=== PATIENT | male | born 1990 | race Caucasian/White ===

== ENCOUNTER 2017-08-25 22:11 | Inpatient (IN) | payer OTHER ==
[~2017-08-25] VITALS: Ht 175.3 cm; Wt 111.0 kg
[2017-08-25 22:15] VITALS: BP 136/102; PULSE 117; RESP 16; TEMP 98.7; O2SAT 98
[2017-08-25] MEDS ORDERED: SODIUM CHLOR 0.9% 1000 ML INJ 1,000 ML IV SCH (22:42)
[2017-08-25] MEDS ORDERED: PANTOPRAZOLE SODIUM 40 MG VIAL IVP ONE (22:45)
[2017-08-25] MEDS ORDERED: ONDANSETRON HCL 4 MG/2 ML VIAL IVP ONE (22:45)
[2017-08-25] MEDS ORDERED: SODIUM CHLORIDE 0.9% FLUSH 10 ML FLUSH IVF PRN (22:45)
[2017-08-25 23:11] VITALS: O2SAT 100
[2017-08-25] MEDS ORDERED: LORazepam 2 MG/ML VIAL IV PUSH ONE (23:15)
[2017-08-25 23:37] LABS: AUTOMATED NEUTROPHIL # 6.7 TH/MM3 (1.8-7.7); BASOPHIL # 0.1 TH/MM3 (0-0.2); BASOPHIL % 0.9 % (0.0-2.0); HEMATOCRIT 42.9 % (39.0-51.0); LYMPH % 28.2 % (9.0-44.0); LYMPHOCYTE # 2.9 TH/MM3 (1.0-4.8); MEAN CELL VOLUME 92.6 FL (80.0-100.0); MEAN CORPUSCULAR HEMOGLOBIN 32.4 PG (27.0-34.0); MEAN PLATELET VOLUME 8.6 FL (7.0-11.0); MONO % 6.4 % (0.0-8.0); MONOCYTE # 0.7 TH/MM3 (0-0.9); NEUT % 64.5 % (16.0-70.0); PLATELET COUNT 335 TH/MM3 (150-450); RED BLOOD COUNT 4.63 MIL/MM3 (4.50-5.90); RED CELL DISTRIBUTION WIDTH 14.4 % (11.6-17.2); WHITE BLOOD COUNT 10.4 TH/MM3 (4.0-11.0)
[2017-08-25] MEDS ORDERED: SODIUM CHLOR 0.9% 1000 ML INJ 1,000 ML IV ONE (23:45)
[2017-08-25 23:50] LABS: INTERNATIONAL NORMALIZED RATIO 1.4 RATIO; PROTHROMBIN TIME - PATIENT 14.2 SEC (9.8-11.6)
[2017-08-25 23:56] LABS: ALBUMIN 3.3 GM/DL (3.4-5.0); ALKALINE PHOSPHATASE 440 U/L (45-117); ALT (GPT) 59 U/L (12-78); AST (GOT) 146 U/L (15-37); BICARBONATE 26.1 MEQ/L (21.0-32.0); BLOOD UREA NITROGEN 2 MG/DL (7-18); CALCIUM 9.9 MG/DL (8.5-10.1); CHLORIDE 94 MEQ/L (98-107); CREATININE 0.83 MG/DL (0.60-1.30); GLOMERULAR FILTRATION RATE 111 ML/MIN (>89); GLUCOSE,RANDOM 123 MG/DL (74-106); SODIUM (NA) 134 MEQ/L (136-145); TOTAL BILIRUBIN ADULT 1.5 MG/DL (0.2-1.0); TOTAL PROTEIN 8.4 GM/DL (6.4-8.2)
[2017-08-26] VITALS (10 sets, daily range): BP systolic 142–161; BP diastolic 79–99; PULSE 94–120; RESP 16–18; TEMP 97.8–98.8; O2SAT 96–100
[2017-08-26 00:10] LABS: BILIRUBIN, URINE NEG (NEG); BLOOD, URINE NEG (NEG); GLUCOSE,URINE NEG (NEG); KETONE, URINE NEG (NEG); MUCUS URINE FEW /lpf (OCC); NITRITE,URINE NEG (NEG); URINE COLOR YELLOW (YELLW/STRAW); URINE LEUKOCYTE ESTERASE NEG (NEG)
[2017-08-26] MEDS ORDERED: SUCRALFATE 1 GM/10 ML CUP PO ONE (00:15)
[2017-08-26] MEDS ORDERED: ALUMINUM/MAGNESIUM/SIMETH 30 ML CUP PO ONE (00:15)
[2017-08-26 00:17] LABS: MAGNESIUM 1.4 MG/DL (1.5-2.5)
[2017-08-26] MEDS ORDERED: IOHEXOL 350 MG/ML 10 ML VIAL (for RAD DIAG) IVCONTRAST ONE (00:24)
[2017-08-26] MEDS ORDERED: MAGNESIUM SULFATE 1 GM PREMIX 100 ML IV ONE (00:45)
[2017-08-26] MEDS ORDERED: POTASSIUM CHLORIDE 20 MEQ CONTROLLED RELEASE TAB PO ONE (00:45)
--- NOTE | 2017-08-26 00:46 | RADRPT ---
EXAM DATE/TIME: 08/26/2017 00:24 [facility] COMPARISON: No previous studies available for comparison. INDICATIONS : Abdomen pain. IV CONTRAST: 75 cc Omnipaque 350 (iohexol) IV ORAL CONTRAST: No oral contrast ingested. RADIATION DOSE: 15.71 CTDIvol (mGy) MEDICAL HISTORY : Cardiovascular disease. Hypertension. Renal calculi. SURGICAL HISTORY : None. ENCOUNTER: Initial ACUITY: 1 day PAIN SCALE: 5/10 LOCATION: Bilateral abdomen TECHNIQUE: Volumetric scanning of the abdomen and pelvis was performed. Using automated exposure control and ad justment of the mA and/or kV according to patient size, radiation dose was kept as low as reasonably achievable to obtain optimal diagnostic quality images. DICOM format image data is available electro nically for review and comparison. FINDINGS: LOWER LUNGS: The visualized lower lungs are clear. LIVER: Failure measures 20.9 cm in length and demonstrates severe diffuse steatosis. There is no dilation o f the biliary tree. There are small calcified stones in the gallbladder. SPLEEN: Normal size without lesion. PANCREAS: The pancreas has an abnormal appearance with ovoid area of low density in the body and tail measuring approximately 6.1 x 1.7 cm. There is a second low-density area in the pancreatic head. Minimal indur ation of the peripancreatic fat is present. There is no pancreatic calcification. KIDNEYS: Normal in size and shape. There is no mass or hydronephrosis. There are 2 nonobstructing right renal stones measuring 2 mm each and there are 2 nonobstructing left renal stones measuring 2 mm each. ADRENAL GLANDS: Within normal limits. VASCULAR: There is no aortic aneurysm. BOWEL/MESENTERY: The stomach, small bowel, and colon demonstrate no acute abnormality. There is no free intraperitone al air or fluid. ABDOMINAL WALL: Within normal limits. RETROPERITONEUM: There is no lymphadenopathy. BLADDER: No wall thickening or mass. REPRODUCTIVE: Within normal limits. INGUINAL: There is no lymphadenopathy or hernia. MUSCULOSKELETAL: Within normal limits for patient age. CONCLUSION: 1. Abnormal pancreas with a tubular area of low density in the body and tail which could represent an abnormally dilated duct or could represent necrosis related to pancreatitis. There is some surroundi ng minimal inflammatory changes. An additional low density areas present in the pancreatic head. Sugg est correlating with the appropriate laboratory values and suggest correlating with any prior imaging studies to assess for change. Followup pancreas protocol CT is suggested to assess for change and ex clude an underlying solid mass. 2. Hepatomegaly with severe steatosis. 3. Other findings include bilateral nonobstructing renal stones and cholelithiasis. Terrell Franklin MD on August 26, 2017 at 0:39 Board Certified Radiologist. This report was verified electronically.
[2017-08-26] MEDS ORDERED: RESP: ALBUTEROL 2.5 MG/IPRATROPIUM 0.5 MG NEB (SCH) NEB ONE (01:00)
--- NOTE | 2017-08-26 01:40 | RADRPT ---
EXAM DATE/TIME: 08/26/2017 01:13 [facility] COMPARISON: No previous studies available for comparison. INDICATIONS : Chest pain, short of breath. MEDICAL HISTORY : None. SURGICAL HISTORY : None. ENCOUNTER: Initial ACUITY: 1 day PAIN SCORE: 0/10 LOCATION: Bilateral chest FINDINGS: Portable AP view of the chest demonstrates a normal-sized cardiac silhouette. No effusion, consolidat ion, or pneumothorax is visualized. The bones and soft tissues demonstrate no acute abnormality. CONCLUSION: No acute cardiopulmonary abnormality is identified. Terrell Franklin MD on August 26, 2017 at 1:38 Board Certified Radiologist. This report was verified electronically.
[2017-08-26] MEDS ORDERED: ONDANSETRON HCL 4 MG/2 ML VIAL IV PUSH ONE (03:15)
--- NOTE | 2017-08-26 04:09 | PD ---
HPI . GI complaint Chief Complaint: GI Complaint Time Seen by Provider: 22:37 Travel History International Travel<30 days: No Contact w/Intl Traveler<30days: No Traveled to known affect area: No History of Present Illness HPI 26-year-old male with a history of chronic severe alcoholism, patient states he drinks at least a pint of vodka a day since the age of 16, presents with having worsening of his chronic epigastric pain, and abdominal bloating. 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 Patient notes recent vomiting syndrome, with inability to take in his normal amount of alcohol and began having acute withdrawal symptoms, which she self medicated by binge drinking over the past several days. Patient notes persistent tremulous hands consistent with slight alcohol withdrawal. [facility] Past Medical History Narrative Medical Past medical history reviewed Cardiovascular Problems: Yes (HTN, PALPITATIONS) Cirrhosis: Yes Hepatitis: Yes (C) Kidney Stones: Yes Past Surgical History Abdominal Surgery: Yes (HERNIA REPAIR A BABY) Social History Alcohol Use: Yes (BINGE [employer]INKS OCC.) Tobacco Use: No Substance Use: No Allergies-Medications (Allergen,Severity, Reaction): Coded Allergies: No Known Allergies (Unverified , 08/25/17) Narrative Medication Allergies and medications reviewed Review of Systems Except as stated in HPI: all other systems reviewed are Neg General / Constitutional: No: Fever Eyes: No: Visual changes HENT: No: Headaches Cardiovascular: No: Chest Pain or Discomfort Respiratory: No: Shortness of Breath Gastrointestinal: Positive: Nausea, Vomiting, Abdominal Pain Genitourinary: No: Dysuria Musculoskeletal: No: Pain Skin: No Rash Neurologic: Positive: Tremor, No: Weakness, Ataxia, Change in Mentation, Slurred Speech Psychiatric: Positive: Anxiety, No: Depression Endocrine: No: Polydipsia Hematologic/Lymphatic: No: Easy Bruising Physical Exam Narrative GENERAL: Awake and alert, ill-appearing, tremulous. Slight tachycardia, afebrile SKIN: Warm and dry. No piloerection, no rashes or lesions HEAD: Atraumatic. Normocephalic. EYES: Pupils equal and round. No scleral icterus. No injection or drainage. ENT: No nasal bleeding or discharge. Mucous membranes pink and moist. NECK: Trachea midline. No JVD. Nontender full range of motion CARDIOVASCULAR: Regular rate and rhythm. S1-S2 no murmurs or gallops RESPIRATORY: No accessory muscle use. Clear to auscultation. Breath sounds equal bilaterally. GASTROINTESTINAL: Abdomen soft, tender epigastrium,, mildly distended.. Hepatic and splenic margins not palpable. MUSCULOSKELETAL: Extremities without clubbing, cyanosis, or edema. No obvious deformities. Cachectic appearing limbs NEUROLOGICAL: Awake and alert. No obvious cranial nerve deficits. Motor grossly within normal limits. Five out of 5 muscle strength in the arms and legs. Normal speech. PSYCHIATRIC: Appropriate mood and affect; insight and judgment normal. Data Data Last Documented VS Vital Signs Date Time Temp Pulse Resp B/P (MAP) Pulse Ox O2 Delivery O2 Flow Rate FiO2 08/26/17 03:43 117 16 143/91 (108) 100 Nasal Cannula 2.00 08/25/17 22:15 98.7 Orders Orders Complete Blood Count With Diff (08/25/17 22:42) Comprehensive Metabolic Panel (08/25/17 22:42) Lipase (08/25/17 22:42) Ammonia (08/25/17 22:42) Prothrombin Time / Inr (Pt) (08/25/17 22:42) Act Partial Throm Time (Ptt) (08/25/17 22:42) Alcohol (Ethanol) (08/25/17 22:42) Urinalysis - C+S If Indicated (08/25/17 22:42) Type And Screen (08/25/17 22:42) Ecg Monitoring (08/25/17 22:42) Iv Access Insert/Monitor (08/25/17 22:42) Oximetry (08/25/17 22:42) Ondansetron Inj (Zofran Inj) (08/25/17 22:45) Pantoprazole Inj (Protonix Inj) (08/25/17 22:45) Sodium Chlor 0.9% 1000 Ml Inj (Ns 1000 M (08/25/17 22:42) Sodium Chloride 0.9% Flush (Ns Flush) (08/25/17 22:45) Lorazepam Inj (Ativan Inj) (08/25/17 23:15) Sodium Chlor 0.9% 1000 Ml Inj (Ns 1000 M (08/25/17 23:45) Morphine Inj (Morphine Inj) (08/26/17 00:00) Al-Mag Hy-Si 40-40-4 Mg/Ml Liq (Mag-Al P (08/26/17 00:15) Sucralfate Liq (Carafate Liq) (08/26/17 00:15) Magnesium (Mg) (08/25/17 23:00) Ct Abd/Pel W Iv Contrast(Rout) (08/26/17 ) Iohexol 350 Inj (Omnipaque 350 Inj) (08/26/17 00:24) Magnesium Sulfate 1 Gm Premix (Magnesium (08/26/17 00:45) Potassium Chloride (Kcl) (08/26/17 00:45) Arterial Blood Gas (Abg) (08/26/17 ) Lactic Acid (08/26/17 00:54) Albuterol-Ipratropium Neb (Duoneb Neb) (08/26/17 01:00) Chest, Single Ap (08/26/17 ) Red Blood Cells (Rbc) (08/25/17 23:00) Ondansetron Inj (Zofran Inj) (08/26/17 03:15) Admit Order (Ed Use Only) (08/26/17 03:59) Labs Laboratory Tests Test 08/25/17 23:00 08/25/17 23:20 08/25/17 23:30 08/26/17 01:15 White Blood Count 10.4 TH/MM3 Red Blood Count 4.63 MIL/MM3 Hemoglobin 15.0 GM/DL Hematocrit 42.9 % Mean Corpuscular Volume 92.6 FL Mean Corpuscular Hemoglobin 32.4 PG Mean Corpuscular Hemoglobin Concent 35.0 % Red Cell Distribution Width 14.4 % Platelet Count 335 TH/MM3 Mean Platelet Volume 8.6 FL Neutrophils (%) (Auto) 64.5 % Lymphocytes (%) (Auto) 28.2 % Monocytes (%) (Auto) 6.4 % Eosinophils (%) (Auto) 0.0 % Basophils (%) (Auto) 0.9 % Neutrophils # (Auto) 6.7 TH/MM3 Lymphocytes # (Auto) 2.9 TH/MM3 Monocytes # (Auto) 0.7 TH/MM3 Eosinophils # (Auto) 0.0 TH/MM3 Basophils # (Auto) 0.1 TH/MM3 CBC Comment DIFF FINAL Differential Comment Prothrombin Time 14.2 SEC Prothromb Time International Ratio 1.4 RATIO Activated Partial Thromboplast Time 27.0 SEC Blood Urea Nitrogen 2 MG/DL Creatinine 0.83 MG/DL Random Glucose 123 MG/DL Total Protein 8.4 GM/DL Albumin 3.3 GM/DL Calcium Level 9.9 MG/DL Magnesium Level 1.4 MG/DL Alkaline Phosphatase 440 U/L Aspartate Amino Transf (AST/SGOT) 146 U/L Alanine Aminotransferase (ALT/SGPT) 59 U/L Total Bilirubin 1.5 MG/DL Sodium Level 134 MEQ/L Potassium Level 2.7 MEQ/L Chloride Level 94 MEQ/L Carbon Dioxide Level 26.1 MEQ/L Anion Gap 14 MEQ/L Estimat Glomerular Filtration Rate 111 ML/MIN Lipase 40 U/L Ethyl Alcohol Level 169 MG/DL Ammonia 17 MCMOL/L Urine Color YELLOW Urine Turbidity CLEAR Urine pH 7.0 Urine Specific [place] 1.005 Urine Protein TRACE mg/dL Urine Glucose (UA) NEG mg/dL Urine Ketones NEG mg/dL Urine Occult Blood NEG Urine Nitrite NEG Urine Bilirubin NEG Urine Urobilinogen LESS THAN 2.0 MG/DL Urine Leukocyte Esterase NEG Urine RBC LESS THAN 1 /hpf Urine WBC 1 /hpf Urine Mucus FEW /lpf Microscopic Urinalysis Comment CULT NOT INDICATED Blood Gas Puncture Site RT RADIAL Blood Gas Patient Temperature 98.6 Blood Gas HCO3 23 mmol/L Blood Gas Base Excess -0.5 mmol/L Blood Gas Oxygen Saturation 97 % Arterial Blood pH 7.45 Arterial Blood Partial Pressure CO2 34 mmHg Arterial Blood Partial Pressure O2 129 mmHG Arterial Blood Oxygen Content 16.5 Vol % Arterial Blood Carboxyhemoglobin 1.3 % Arterial Blood Methemoglobin 0.3 % Blood Gas Hemoglobin 11.9 G/DL Oxygen Delivery Device NASAL CANNULA Blood Gas Liter Flow 2 L/M Test 08/26/17 01:25 Lactic Acid Level 2.7 mmol/L [facility] Medical Decision Making Medical Screen Exam Complete: Yes Emergency Medical Condition: Yes Medical Record Reviewed: Yes Differential Diagnosis Acute pancreatitis, chronic alcoholism, alcoholic gastritis, acute withdrawal from alcohol Narrative Course Patient laboratory examinations reviewed, lipase normal, however the patient has probable chronic pancreatitis with decreased ability to create enzymes. Hypokalemia/hypomagnesemia treated CT abdomen and pelvis notable for severely atrophic and potentially liquefied pancreas. Case discussed with Dr. Davis Hospital service, admitted for alcohol draw and acute on chronic pancreatitis Patient has significant improvement with his alcohol withdrawal symptoms, no longer tremulous, no longer tachycardic, abdominal pain significantly improved as well. Diagnosis Primary Impression: Acute on chronic pancreatitis Additional Impressions: Chronic pancreatitis due to acute alcohol intoxication Alcohol withdrawal Qualified Codes: F10.230 - Alcohol dependence with withdrawal, uncomplicated Admitting Information Admitting Physician Requests: Admit Ankur Castillo MD Aug 26, 2017 04:09
[2017-08-26] MEDS: SODIUM CHLOR 0.9% 1000 ML INJ 1,000 ML IV SCH ×4 (04:10→21:09)
[2017-08-26] MEDS ORDERED: SODIUM CHLORIDE 0.9% FLUSH 10 ML FLUSH IV FLUSH PRN (04:15)
[2017-08-26] MEDS ORDERED: ACETAMINOPHEN 325 MG TAB PO PRN (04:15)
--- NOTE | 2017-08-26 04:45 | HHI.HP ---
[facility] No Primary Care Physician Admission Diagnosis Alcohol Withdrawal, Acute on Chronic Pancreatitis Diagnoses: Travel History International Travel<30 Days: No Contact w/Intl Traveler <30 Da: No Traveled to Known Affected Are: No History of Present Illness 26-year-old male with a past medical history significant for hepatitis C and alcohol abuse presents to the emergency department for evaluation of epigastric abdominal pain. The patient reports that the pain radiates to his back. He endorses several episodes of bloody emesis that started yesterday. He also complains of "the shakes." The patient reports that he drinks approximately 1- 3 pints of vodka a day for days to weeks at a time. Review of Systems Except as stated in HPI: all other systems reviewed are Neg Denies fever or chills Denies blurry vision, otorrhea, rhinorrhea Denies sore throat and cough No chest pain, palpitations No shortness of breath or wheezing No abdominal pain Denies constipation/diarrhea/nausea/vomiting Denies muscle pain Denies focal weakness No rashes Past Family Social History Past Medical History Alcohol abuse Hepatitis C Past Surgical History Hernia repair as an infant Reported Medications None Allergies: Coded Allergies: No Known Allergies (Unverified , 08/25/17) Family History Father with diabetes mellitus Social History Positive marijuana. Denies tobacco. Alcohol as documented in history of present illness. Physical Exam Vital Signs Vital Signs Date Time Temp Pulse Resp B/P (MAP) Pulse Ox O2 Delivery O2 Flow Rate FiO2 08/26/17 03:43 117 16 143/91 (108) 100 Nasal Cannula 2.00 08/26/17 01:08 99 Nasal Cannula 2.00 08/25/17 23:11 100 Room Air 08/25/17 22:15 98.7 117 16 136/102 (113) 98 Physical Exam GENERAL: male lying in bed in moderate distress SKIN: No rashes, ecchymoses or lesions. Cool and dry. HEAD: Atraumatic. Normocephalic. No temporal or scalp tenderness. EYES: Pupils equal round and reactive. Extraocular motions intact. No scleral icterus. No injection or drainage. ENT: Nose without bleeding, purulent drainage or septal hematoma. Throat without erythema, tonsillar hypertrophy or exudate. Uvula midline. Airway patent. NECK: Trachea midline. No JVD or lymphadenopathy. Supple, nontender, no meningeal signs. CARDIOVASCULAR: Regular rate and rhythm without murmurs, gallops, or rubs. RESPIRATORY: Clear to auscultation. Breath sounds equal bilaterally. No wheezes , rales, or rhonchi. GASTROINTESTINAL: Abdomen soft, exquisitely tender to palpation throughout, worse in the epigastric region, nondistended. No hepato-splenomegaly, or palpable masses. MUSCULOSKELETAL: Extremities without clubbing, cyanosis, or edema. No joint tenderness, effusion, or edema noted. No calf tenderness. NEUROLOGICAL: Awake and alert. Cranial nerves II through XII intact. Motor and sensory grossly within normal limits. Normal speech. Laboratory Laboratory Tests Test 08/25/17 23:00 08/25/17 23:20 08/25/17 23:30 08/26/17 01:15 White Blood Count 10.4 Red Blood Count 4.63 Hemoglobin 15.0 Hematocrit 42.9 Mean Corpuscular Volume 92.6 Mean Corpuscular Hemoglobin 32.4 Mean Corpuscular Hemoglobin Concent 35.0 Red Cell Distribution Width 14.4 Platelet Count 335 Mean Platelet Volume 8.6 Neutrophils (%) (Auto) 64.5 Lymphocytes (%) (Auto) 28.2 Monocytes (%) (Auto) 6.4 Eosinophils (%) (Auto) 0.0 Basophils (%) (Auto) 0.9 Neutrophils # (Auto) 6.7 Lymphocytes # (Auto) 2.9 Monocytes # (Auto) 0.7 Eosinophils # (Auto) 0.0 Basophils # (Auto) 0.1 CBC Comment DIFF FINAL Differential Comment Prothrombin Time 14.2 Prothromb Time International Ratio 1.4 Activated Partial Thromboplast Time 27.0 Blood Urea Nitrogen 2 Creatinine 0.83 Random Glucose 123 Total Protein 8.4 Albumin 3.3 Calcium Level 9.9 Magnesium Level 1.4 Alkaline Phosphatase 440 Aspartate Amino Transf (AST/SGOT) 146 Alanine Aminotransferase (ALT/SGPT) 59 Total Bilirubin 1.5 Sodium Level 134 Potassium Level 2.7 Chloride Level 94 Carbon Dioxide Level 26.1 Anion Gap 14 Estimat Glomerular Filtration Rate 111 Lipase 40 Ethyl Alcohol Level 169 Ammonia 17 Urine Color YELLOW Urine Turbidity CLEAR Urine pH 7.0 Urine Specific [place] 1.005 Urine Protein TRACE Urine Glucose (UA) NEG Urine Ketones NEG Urine Occult Blood NEG Urine Nitrite NEG Urine Bilirubin NEG Urine Urobilinogen LESS THAN 2.0 Urine Leukocyte Esterase NEG Urine RBC LESS THAN 1 Urine WBC 1 Urine Mucus FEW Microscopic Urinalysis Comment CULT NOT INDICATED Blood Gas Puncture Site RT RADIAL Blood Gas Patient Temperature 98.6 Blood Gas HCO3 23 Blood Gas Base Excess -0.5 Blood Gas Oxygen Saturation 97 Arterial Blood pH 7.45 Arterial Blood Partial Pressure CO2 34 Arterial Blood Partial Pressure O2 129 Arterial Blood Oxygen Content 16.5 Arterial Blood Carboxyhemoglobin 1.3 Arterial Blood Methemoglobin 0.3 Blood Gas Hemoglobin 11.9 Oxygen Delivery Device NASAL CANNULA Blood Gas Liter Flow 2 Test 08/26/17 01:25 Lactic Acid Level 2.7 Result Diagram: 08/25/17229908/25/172299 Chaunceyrini VTE Risk Assessment [place] VTE Risk Assessment: No/Low Risk (score <= 1) Caprini Risk Assessment Model Point Value = 1 Point Value = 2 Point Value = 3 Point Value = 5 Age 41-60 Minor surgery BMI > 25 kg/m2 Swollen legs Varicose veins or History of unexplained or recurrent spontaneous Oral contraceptives or hormone replacement Sepsis (< 1 month) Serious lung disease, including pneumonia (< 1 month) Abnormal pulmonary function Acute myocardial infarction Congestive heart failure (< 1 month) History of inflammatory bowel disease Medical patient at bed rest Age 61-74 Arthroscopic surgery Major open surgery (> 45 min) Laparoscopic surgery (> 45 min) Malignancy Confined to bed (> 72 hours) Immobilizing plaster cast Central venous access Age >= 75 History of VTE Family history of VTE Factor V Leiden Prothrombin [id number] Lupus anticoagulant Anticardiolipin antibodies Elevated serum homocysteine Heparin-induced thrombocytopenia Other congenital or acquired thrombophilia Stroke (< 1 month) Elective arthroplasty Hip, pelvis, or leg fracture Acute spinal cord injury (< 1 month) Prophylaxis Regimen Total Risk Factor Score Risk Level Prophylaxis Regimen 0-1 Low Early ambulation 2 Moderate Order ONE of the following: *Sequential Compression Device (SCD) *Heparin 5000 units SQ BID 3-4 Higher Order ONE of the following medications: *Heparin 5000 units SQ TID *Enoxaparin/Lovenox 40 mg SQ daily (WT < 150 kg, CrCl > 30 mL/min) *Enoxaparin/Lovenox 30 mg SQ daily (WT < 150 kg, CrCl > 10-29 mL/min) *Enoxaparin/Lovenox 30 mg SQ BID (WT < 150 kg, CrCl > 30 mL/min) AND/OR *Sequential Compression Device (SCD) 5 or more Highest Order ONE of the following medications: *Heparin 5000 units SQ TID (Preferred with Epidurals) *Enoxaparin/Lovenox 40 mg SQ daily (WT < 150 kg, CrCl > 30 mL/min) *Enoxaparin/Lovenox 30 mg SQ daily (WT < 150 kg, CrCl > 10-29 mL/min) *Enoxaparin/Lovenox 30 mg SQ BID (WT < 150 kg, CrCl > 30 mL/min) AND *Sequential Compression Device (SCD) Assessment and Plan Assessment and Plan Assessment/plan: 1. Alcoholic pancreatitis CT of the abdomen/pelvis significant for abnormal pancreas with possible necrosis and possible underlying solid mass Gastroenterology consulted, appreciate recommendations MRI pending for further characterization Nothing by mouth IV fluid hydration 2. Hypokalemia Status post by mouth and IV replacement Monitor BMP 3. Hepatitis C Patient will need outpatient follow-up once acute medical conditions resolved 4. Alcohol abuse CIWA protocol Cessation counseling provided Monitor for signs of acute withdrawal FEN NPO NS at 150 cc/hr Electrolytes: As above Ambulation Physician Certification 2 Midnight Certification Type: Admission for Inpatient Services Order for Inpatient Services The services are ordered in accordance with Medicare regulations or non- Medicare payer requirements, as applicable. In the case of services not specified as inpatient-only, they are appropriately provided as inpatient services in accordance with the 2-midnight benchmark. Estimated LOS (days): 2 2 days is the estimated time the patient will need to remain in the hospital, assuming treatment plan goals are met and no additional complications. Post-Hospital Plan: Not yet determined Rosalba Davis MD Aug 26, 2017 04:45
[2017-08-26] MEDS ORDERED: MORPHINE SULFATE 2 MG/ML INJ IV PUSH ONE ×2 (05:30)
[2017-08-26] MEDS ORDERED: LORazepam 2 MG/ML VIAL IV PUSH ONE (05:30)
[2017-08-26] MEDS: POTASSIUM CHLOR 10 MEQ PREMIX 100 ML IV SCH ×3 (05:33→18:39)
[2017-08-26] MEDS ORDERED: LORazepam 2 MG TAB PO PRN (06:30)
[2017-08-26] MEDS ORDERED: FLUMAZENIL 0.5 MG/5 ML VIAL IV PUSH PRN (06:30)
[2017-08-26] MEDS ORDERED: LORazepam 2 MG/ML VIAL IV PUSH PRN ×3 (06:30)
[2017-08-26] MEDS: SODIUM CHLORIDE 0.9% FLUSH 10 ML FLUSH IV FLUSH SCH ×2 (09:00→21:04)
[2017-08-26] MEDS: LORazepam 2 MG/ML VIAL IV PUSH PRN ×4 (09:33→21:08)
[2017-08-26] MEDS ORDERED: SODIUM CHLOR 0.9% 1000 ML INJ 1,000 ML IV ONE (09:45)
[2017-08-26] MEDS ORDERED: THIAMINE HCL 100 MG TAB PO ONE (10:00)
--- NOTE | 2017-08-26 11:59 | PD.CONS ---
HPI History of Present Illness This is a 26 year old male with hx ETOH abuse, hep c, shaan mcleod tear who presented with epigastric pain, loose stool, hematemesis. 4 days ago he began experiencing epigastric and RUQ pain that radiates to the back and is spasm like , . He had 3 episodes loose non-blood stool this am. Yesterday he had n/ v with some coffee ground emesis and copious carla blood in emesis. Today he is nauseous but has nto vomited. he was drinking 1-3 pints vodka daily and has been trying to quit. He quit abrubtly and has been having shaking an bloating, SOB, palpitations. He was scheduled to go to rehab when he began feeling sick 4 days ago. He had a similar episode of abd pain last year and was seen at [facility] and had EGD with Dr Schaffer 08/2016 found shaan mcleod tear, small nonbleeding ulcer, path benign. he was pos for hep c antibody at that time but does not recall being told this; he says he was told he had pancreatitis, " a blocked duct," and etoh hepatitis. CT scan 08/26/17 showed abnormal pancreas with tubular area low density coulb be abnormally dilated duct vs necrosis r/t pancreatitis, cholelithiasis, hepatomegaly. (Patty Rosales) PFSH Past Medical History Alcohol abuse Hepatitis C Past Surgical History Hernia repair as an (Patty Rosales) Coded Allergies: No Known Allergies (Unverified , 08/25/17) Family History Father with diabetes mellitus Social History Positive marijuana. Denies tobacco. Alcohol as documented in history of present illness. (Patty Rosales) Review of Systems Constitutional: COMPLAINS OF: Weight loss, Chills Endocrine: DENIES: Polydipsia Eyes: DENIES: Blurred vision Ears, nose, mouth, throat: DENIES: Hearing loss Respiratory: COMPLAINS OF: Shortness of breath, DENIES: Cough Cardiovascular: COMPLAINS OF: Palpitations, DENIES: Chest pain Gastrointestinal: COMPLAINS OF: Abdominal pain, Diarrhea, Nausea, Vomiting, Hematemesis, DENIES: Black stools, Bloody stools Genitourinary: DENIES: Hematuria Musculoskeletal: DENIES: Joint Swelling Integumentary: DENIES: Jaundice Hematologic/lymphatic: DENIES: Bruising Neurologic: DENIES: Abnormal gait Psychiatric: COMPLAINS OF: Anxiety (Patty Rosales) GI Exam Vitals I&O Vital Signs Date Time Temp Pulse Resp B/P (MAP) Pulse Ox O2 Delivery O2 Flow Rate FiO2 08/26/17 08:10 105 08/26/17 06:30 98.8 120 18 155/94 (114) 99 08/26/17 06:05 Nasal Cannula 2.00 08/26/17 05:57 111 16 143/79 (100) 100 Nasal Cannula 08/26/17 03:43 117 16 143/91 (108) 100 Nasal Cannula 2.00 08/26/17 01:08 99 Nasal Cannula 2.00 08/25/17 23:11 100 Room Air 08/25/17 22:15 98.7 117 16 136/102 (113) 98 Imaging Last Impressions Chest X-Ray 08/26/17 0000 Signed Impressions: Service Date/Time: Saturday, August 26, 2017 01:13 - CONCLUSION: No acute cardiopulmonary abnormality is identified. Terrell Franklin MD Abdomen/Pelvis CT 08/26/17 0000 Signed Impressions: Service Date/Time: Saturday, August 26, 2017 00:24 - CONCLUSION: 1. Abnormal pancreas with a tubular area of low density in the body and tail which could represent an abnormally dilated duct or could represent necrosis related to pancreatitis. There is some surrounding minimal inflammatory changes. An additional low density areas present in the pancreatic head. Suggest correlating with the appropriate laboratory values and suggest correlating with any prior imaging studies to assess for change. Followup pancreas protocol CT is suggested to assess for change and exclude an underlying solid mass. 2. Hepatomegaly with severe steatosis. 3. Other findings include bilateral nonobstructing renal stones and cholelithiasis. Terrell Franklin MD Laboratory Test 08/25/17 23:00 08/25/17 23:20 08/25/17 23:30 08/26/17 01:15 White Blood Count 10.4 TH/MM3 Red Blood Count 4.63 MIL/MM3 Hemoglobin 15.0 GM/DL Hematocrit 42.9 % Mean Corpuscular Volume 92.6 FL Mean Corpuscular Hemoglobin 32.4 PG Mean Corpuscular Hemoglobin Concent 35.0 % Red Cell Distribution Width 14.4 % Platelet Count 335 TH/MM3 Mean Platelet Volume 8.6 FL Neutrophils (%) (Auto) 64.5 % Lymphocytes (%) (Auto) 28.2 % Monocytes (%) (Auto) 6.4 % Eosinophils (%) (Auto) 0.0 % Basophils (%) (Auto) 0.9 % Neutrophils # (Auto) 6.7 TH/MM3 Lymphocytes # (Auto) 2.9 TH/MM3 Monocytes # (Auto) 0.7 TH/MM3 Eosinophils # (Auto) 0.0 TH/MM3 Basophils # (Auto) 0.1 TH/MM3 CBC Comment DIFF FINAL Differential Comment Prothrombin Time 14.2 SEC Prothromb Time International Ratio 1.4 RATIO Activated Partial Thromboplast Time 27.0 SEC Blood Urea Nitrogen 2 MG/DL Creatinine 0.83 MG/DL Random Glucose 123 MG/DL Total Protein 8.4 GM/DL Albumin 3.3 GM/DL Calcium Level 9.9 MG/DL Magnesium Level 1.4 MG/DL Alkaline Phosphatase 440 U/L Aspartate Amino Transf (AST/SGOT) 146 U/L Alanine Aminotransferase (ALT/SGPT) 59 U/L Total Bilirubin 1.5 MG/DL Sodium Level 134 MEQ/L Potassium Level 2.7 MEQ/L Chloride Level 94 MEQ/L Carbon Dioxide Level 26.1 MEQ/L Anion Gap 14 MEQ/L Estimat Glomerular Filtration Rate 111 ML/MIN Lipase 40 U/L Ethyl Alcohol Level 169 MG/DL Ammonia 17 MCMOL/L Urine Color YELLOW Urine Turbidity CLEAR Urine pH 7.0 Urine Specific [place] 1.005 Urine Protein TRACE mg/dL Urine Glucose (UA) NEG mg/dL Urine Ketones NEG mg/dL Urine Occult Blood NEG Urine Nitrite NEG Urine Bilirubin NEG Urine Urobilinogen LESS THAN 2.0 MG/DL Urine Leukocyte Esterase NEG Urine RBC LESS THAN 1 /hpf Urine WBC 1 /hpf Urine Mucus FEW /lpf Microscopic Urinalysis Comment CULT NOT INDICATED Blood Gas Puncture Site RT RADIAL Blood Gas Patient Temperature 98.6 Blood Gas HCO3 23 mmol/L Blood Gas Base Excess -0.5 mmol/L Blood Gas Oxygen Saturation 97 % Arterial Blood pH 7.45 Arterial Blood Partial Pressure CO2 34 mmHg Arterial Blood Partial Pressure O2 129 mmHG Arterial Blood Oxygen Content 16.5 Vol % Arterial Blood Carboxyhemoglobin 1.3 % Arterial Blood Methemoglobin 0.3 % Blood Gas Hemoglobin 11.9 G/DL Oxygen Delivery Device NASAL CANNULA Blood Gas Liter Flow 2 L/M Test 08/26/17 01:25 Lactic Acid Level 2.7 mmol/L Physical Examination HEENT: PERRL; normocephalic; atraumatic; +subtle icterus CHEST: CTA CARDIAC: RRR ABDOMEN: Soft,obese, TTP RUQ and epigastrium, bowel sounds are present in all four quadrants. EXTREMITIES: No clubbing, cyanosis, or edema. SKIN: Normal; no rash; no jaundice. PERINATAL EDUCATOR: No focal deficits; alert and oriented times three. (Patty Rosales) Assessment and Plan Plan ASSESSMENT - abnormal imaging, epigastric and RUQ pain - CT as above, dilated duct vs necrosis, cholelithiasis. Lipase WNL. cites previously being told he had a blocked duct and a stone passed, this was last year. - hematemesis - could be shaan mcleod tear, ulcer as both of these seen on EGD 08/2016. HH WNL - elevated LFTs - unclear etiology, abuses ETOH, could poss be obstruction, CT as above. hx hep c ab reactive, never followed up. lola gandara, says he had done at reputable establishment. denies IVDU. PLAN - EGD in am - ok for clear liquids from GI standpoint - NPO after midnight - obtain consent - hcv quant and genotype - await MRabd/pelvis - if MRI shows CBD obstruction will need ERCP - CMP in am - monitor labs - ETOH cessation - further recs as case unfolds pt seen by myself and Dr Hamilton and this note is written on her behalf (Patty Rosales) Patty Rosales Aug 26, 2017 11:59 Caren Hamilton MD Aug 27, 2017 14:10
[2017-08-26] MEDS ORDERED: GADODIAMIDE PF 287 MG/ML 20 ML VIAL (for RAD MRI) IVCONTRAST ONE (13:33)
[2017-08-26] MEDS: ONDANSETRON HCL 4 MG/2 ML VIAL IVP PRN ×2 (13:44→21:24)
--- NOTE | 2017-08-26 14:53 | RADRPT ---
EXAM DATE/TIME: 08/26/2017 12:57 [facility] COMPARISON: CT ABDOMEN & PELVIS W CONTRAST, August 26, 2017, 0:24. INDICATIONS : Pancreatic mass. Abdominal pain with abnormal CT. CONTRAST: 20 cc Omniscan (gadodiamide) IV MEDICAL HISTORY : Seizures. Hypertension. Cirrhosis. Hepatitis. SURGICAL HISTORY : Umbilical hernia repair. ENCOUNTER: Subsequent ACUITY: 2 day PAIN SCORE: 4/10 LOCATION: abdomen. TECHNIQUE: Multiplanar, multisequence magnetic resonance imaging of the abdomen was performed without and with i ntravenous contrast. FINDINGS: The liver is enlarged and demonstrates diffuse fatty infiltration. No focal hepatic mass is noted. Ch olelithiasis is noted. The spleen is mildly enlarged. There is diffuse enlargement of the pancreas wi th central tubular area of fluid attenuation which may represent a markedly dilated pancreatic duct o r necrosis. ERCP may be helpful for further evaluation of this patient. No definite focal mass is freeman ntified on this examination. Multiple calcified nonobstructing bilateral renal calculi are noted. The re is no hydronephrosis or solid renal mass. The normal aorta and inferior vena cava are unremarkable . The adrenal glands are normal bilaterally. Tiny right pleural effusion is noted. CONCLUSION: 1. Diffuse enlargement of pancreas with central tubular area of fluid attenuation which may represent a markedly dilated pancreatic duct or necrosis. ERCP may be helpful for further evaluation of this p atient. No definite focal mass is identified. 2. Enlarged fatty liver. 3. Mild splenomegaly. 4. Cholelithiasis. 5. Calcified nonobstructing bilateral renal calculi. 6. Tiny right pleural effusion. Joey Prince MD on August 26, 2017 at 14:40 Board Certified Radiologist. This report was verified electronically.
[2017-08-26] MEDS ORDERED: SODIUM CHLORID 0.9% 500 ML IV PRN (15:30)
[2017-08-26] MEDS ORDERED: METOPROLOL TARTRATE 25 MG TAB PO PRN (15:30)
[2017-08-26] MEDS ORDERED: CHLORHEXIDINE GLUCONATE 2 % 1 PACK (2 CLOTHS) TOPICAL PRN (15:30)
[2017-08-26] MEDS ORDERED: POVIDONE IODINE 5% (ANTISEPSIS KIT) 4 APPLICATIONS EACH NARE PRN (15:30)
[2017-08-26] MEDS ORDERED: LACTATED RINGER'S 1000 ML IV PRN (15:30)
[2017-08-26 15:35] LABS: ALBUMIN 2.9 GM/DL (3.4-5.0); AST (GOT) 99 U/L (15-37); BLOOD UREA NITROGEN 3 MG/DL (7-18); CALCIUM 7.5 MG/DL (8.5-10.1); CHLORIDE 105 MEQ/L (98-107); CREATININE 0.79 MG/DL (0.60-1.30); GLOMERULAR FILTRATION RATE 118 ML/MIN (>89); GLUCOSE,RANDOM 102 MG/DL (74-106); SODIUM (NA) 138 MEQ/L (136-145)
[2017-08-26 15:44] LABS: ALKALINE PHOSPHATASE 342 U/L (45-117); ALT (GPT) 50 U/L (12-78); TOTAL BILIRUBIN ADULT 1.4 MG/DL (0.2-1.0); TOTAL PROTEIN 7.5 GM/DL (6.4-8.2)
[2017-08-27] VITALS: PULSE 95
[2017-08-27] MEDS: MORPHINE SULFATE 2 MG/ML INJ IV PUSH PRN ×4 (01:16→15:39)
[2017-08-27] MEDS: SODIUM CHLOR 0.9% 1000 ML INJ 1,000 ML IV SCH ×3 (01:30→20:56)
[2017-08-27 04:00] VITALS: BP 140/93; PULSE 80; PULSE 89; RESP 19; TEMP 98.6; O2SAT 99
[2017-08-27] MEDS: ONDANSETRON HCL 4 MG/2 ML VIAL IVP PRN ×4 (04:39→23:55)
[2017-08-27 04:49] LABS: AUTOMATED NEUTROPHIL # 2.9 TH/MM3 (1.8-7.7); BASOPHIL # 0.1 TH/MM3 (0-0.2); BASOPHIL % 1.5 % (0.0-2.0); EOSINOPHIL % 0.6 % (0.0-4.0); HEMATOCRIT 34.7 % (39.0-51.0); HEMOGLOBIN 11.9 GM/DL (13.0-17.0); LYMPH % 39.1 % (9.0-44.0); LYMPHOCYTE # 2.1 TH/MM3 (1.0-4.8); MEAN CELL VOLUME 93.8 FL (80.0-100.0); MEAN CORPUSCULAR HEMOGLOBIN 32.3 PG (27.0-34.0); MEAN CORPUSCULAR HGB CONC 34.4 % (32.0-36.0); MEAN PLATELET VOLUME 8.3 FL (7.0-11.0); MONO % 5.7 % (0.0-8.0); MONOCYTE # 0.3 TH/MM3 (0-0.9); NEUT % 53.1 % (16.0-70.0); PLATELET COUNT 203 TH/MM3 (150-450); RED CELL DISTRIBUTION WIDTH 14.2 % (11.6-17.2); WHITE BLOOD COUNT 5.4 TH/MM3 (4.0-11.0)
[2017-08-27 05:21] LABS: ALBUMIN 2.7 GM/DL (3.4-5.0); ALT (GPT) 39 U/L (12-78); AST (GOT) 76 U/L (15-37); BICARBONATE 26.3 MEQ/L (21.0-32.0); BLOOD UREA NITROGEN 3 MG/DL (7-18); CALCIUM 7.8 MG/DL (8.5-10.1); CHLORIDE 106 MEQ/L (98-107); CREATININE 0.77 MG/DL (0.60-1.30); GLOMERULAR FILTRATION RATE 121 ML/MIN (>89); GLUCOSE,RANDOM 91 MG/DL (74-106); MAGNESIUM 1.7 MG/DL (1.5-2.5); SODIUM (NA) 141 MEQ/L (136-145)
[2017-08-27 05:23] LABS: ALKALINE PHOSPHATASE 287 U/L (45-117); TOTAL BILIRUBIN ADULT 1.3 MG/DL (0.2-1.0); TOTAL PROTEIN 6.6 GM/DL (6.4-8.2)
[2017-08-27] MEDS: LORazepam 2 MG/ML VIAL IV PUSH PRN ×2 (06:04→11:05)
[2017-08-27 07:48] VITALS: BP 156/86; PULSE 86; RESP 18; TEMP 96.9; O2SAT 100
[2017-08-27 08:00] VITALS: PULSE 97
[2017-08-27] MEDS: SODIUM CHLORIDE 0.9% FLUSH 10 ML FLUSH IV FLUSH SCH ×2 (08:13→20:56)
[2017-08-27] MEDS: THIAMINE HCL 100 MG TAB PO SCH (08:13)
[2017-08-27] MEDS ORDERED: PROPOFOL 200 MG/20 ML AMP IV ONE (12:00)
[2017-08-27] MEDS ORDERED: LIDOCAINE HCL 1% PF 5 ML SYRINGE OTHER ONE (12:00)
--- NOTE | 2017-08-27 13:05 | EKG ---
Date Performed: 08/26/2017 Time Performed: 11:49:34 PTAGE: 26 years EKG: SINUS TACHYCARDIA ABNORMAL RHYTHM ECG NO PREVIOUS TRACING DOCTOR: Deshawn Jackson Interpretating Date/Time 08/27/2017 12:56:56
--- NOTE | 2017-08-27 14:29 | GIPROC ---
[facility] [address] [facility]. [facility], [address] EGD PROCEDURE REPORT EXAM DATE: 08/27/2017 PATIENT NAME: Arnaud Gallagher MR #: [id number] BIRTHDATE: 1990 ATTENDING: Caren Hamilton MD ORDER #: [id number] LINK FABRIC MACHINE OPERATOR: Katie Eaton and Damion Estrada STATUS: inpatient INDICATIONS: The patient is a 26 yr old male here for an EGD due to nausea, vomiting gi bleeding PROCEDURE PERFORMED: EGD w/ biopsy MEDICATIONS: None and Per Anesthesia. TOPICAL ANESTHETIC: none CONSENT: The patient understands the risks and benefits of the procedure and understands that these risks include, but are not limited to: sedation, allergic reaction, infection, perforation and/or bleeding. Alternative means of evaluation and treatment include, among others: physical exam, x-rays, and/or surgical intervention. The patient elects to proceed with this endoscopic procedure. medical equipment was checked for proper function. Hand hygiene and appropriate measures for infection prevention was taken. After the risks, benefits and alternatives of the procedure were thoroughly explained, Informed consent was verified, confirmed and timeout was successfully executed by the treatment team. The patient was anesthetized with topical anesthesia and the Pod Innsax [id number] endoscope was introduced through the mouth and advanced to the second portion of the duodenum. Retroflexed views revealed a hiatal hernia The gastroscope was then slowly withdrawn and removed. Esophagitis grade b -distal esophagus-biopsy gastrtis antrum-biopsy duodenitis second portion-biopsy large amount of bile suctioned suggesting some degree of gastroparesis. ADVERSE EVENTS: There were no complications. IMPRESSIONS: 1. Esophagitis grade b -distal esophagus-biopsy gastrtis antrum-biopsy duodenitis second portion-biopsy large amount of bile suctioned suggesting some degree of gastroparesis 2. Retroflexed views revealed a hiatal hernia RECOMMENDATIONS: 1. Await biopsy results. Biopsy results will not be ready for 7-10 days. If you don't hear from us in two weeks, call our office for biopsy results. 2. Anti-reflux regimen 3. Continue PPI 4. Avoid NSAIDS 5. Soft diet PATIENT CONDITION: stable DISPOSITION: Inpatient REPEAT EXAM: Return 1 year EGD Caren Hamilton MD eSigned: Caren Hamilton MD 08/27/2017 2:28 PM cc: PATIENT NAME: Arnaud Gallagher MR#: [id number]
[2017-08-27 16:00] VITALS: BP 146/98; PULSE 108; RESP 18; TEMP 98.8; O2SAT 98
--- NOTE | 2017-08-27 17:02 | HHI.PR ---
Subjective Remarks Patient reports continued epigastric abdominal pain. Reports continued dry heaves. Denies any chest pain or shortness breath. Objective Vital Signs Date Time Temp Pulse Resp B/P (MAP) Pulse Ox O2 Delivery O2 Flow Rate FiO2 08/27/17 14:54 98.9 82 16 145/84 (104) 99 08/27/17 14:25 98.9 93 18 152/93 (112) 97 08/27/17 14:25 98.9 93 18 152/93 (112) 97 Room Air 08/27/17 08:00 100 Nasal Cannula 2.00 08/27/17 08:00 97 08/27/17 07:48 96.9 86 18 156/86 (109) 100 08/27/17 04:00 80 08/27/17 04:00 98.6 89 19 140/93 (109) 99 08/27/17 00:00 95 08/26/17 23:55 98.7 96 18 144/91 (108) 98 08/26/17 21:10 98.4 96 18 161/90 (113) 97 08/26/17 20:00 94 I/O 08/26/17 08/26/17 08/26/17 08/27/17 08/27/17 08/27/17 06:59 14:59 22:59 06:59 14:59 22:59 Intake Total 480 ml 0 ml 150 ml 800 ml Output Total 480 ml 1200 ml Balance -480 ml 480 ml -1200 ml 150 ml 800 ml Intake Oral 480 ml 0 ml IV Total 800 ml Other 150 ml Output Urine Total 480 ml 1200 ml # Voids 1 1 # Bowel Movements 0 1 0 Result Diagram: 08/27/1742608/27/17426 Objective Remarks GENERAL: sitting up in bed. Appears uncomfortable. SKIN: Warm and dry. HEAD: Normocephalic. EYES: No scleral icterus. No injection or drainage. NECK: Supple, trachea midline. No JVD. CARDIOVASCULAR: Regular rate and rhythm without murmurs, gallops, or rubs. RESPIRATORY: Breath sounds equal bilaterally. No accessory muscle use. GASTROINTESTINAL: Abdomen soft. Gastric tenderness to moderate palpation. No rebound or guarding. MUSCULOSKELETAL: No cyanosis, or edema. BACK: Nontender without obvious deformity. No CVA tenderness. A/P Assessment and Plan Assessment/plan: //Alcoholic pancreatitis CT of the abdomen/pelvis significant for abnormal pancreas with possible necrosis and possible underlying solid mass Gastroenterology consulted, appreciate recommendations MRI pending for further characterization Nothing by mouth IV fluid hydration = Appreciate GI assistance. Has post EGD today. Possible gastroparesis. Discontinue morphine. // Hypokalemia Status post by mouth and IV replacement Monitor BMP = 08/27. Potassium 3.4. Replaced. // Hepatitis C Patient will need outpatient follow-up once acute medical conditions resolved // Alcohol abuse [facility] protocol Cessation counseling provided Monitor for signs of acute withdrawal = Patient continues with tachycardia, withdrawal. Continue scheduled and as needed benzodiazepines. FEN NPO NS at 150 cc/hr Electrolytes: As above Ambulation Discharge Planning when tolerating po, and cleared by Jag Thomas MD Aug 27, 2017 17:02
[2017-08-27] MEDS ORDERED: MAGNESIUM SULFATE 1 GM PREMIX 100 ML IV ONE (17:15)
[2017-08-27 20:00] VITALS: BP 131/92; PULSE 98; RESP 17; TEMP 98.9; O2SAT 99
[2017-08-27] MEDS: POTASSIUM CHLOR 10 MEQ PREMIX 100 ML IV SCH (20:55)
[2017-08-27] MEDS: LORazepam 1 MG TAB PO PRN (23:55)
[2017-08-28] VITALS: BP 131/94; PULSE 90; RESP 16; TEMP 98.3; O2SAT 97
[2017-08-28] MEDS: POTASSIUM CHLOR 10 MEQ PREMIX 100 ML IV SCH (00:05)
[2017-08-28] MEDS: SODIUM CHLOR 0.9% 1000 ML INJ 1,000 ML IV SCH (02:57)
[2017-08-28 04:00] VITALS: BP 157/99; PULSE 99; RESP 16; TEMP 96.2; O2SAT 100
[2017-08-28 07:15] VITALS: PULSE 100
[2017-08-28 08:00] VITALS: BP 129/100; PULSE 100; RESP 18; TEMP 98.4; O2SAT 100
[2017-08-28] MEDS: LORazepam 1 MG TAB PO PRN ×2 (08:55→21:52)
[2017-08-28] MEDS: THIAMINE HCL 100 MG TAB PO SCH (08:55)
[2017-08-28] MEDS: SODIUM CHLORIDE 0.9% FLUSH 10 ML FLUSH IV FLUSH SCH (09:00)
[2017-08-28] MEDS ORDERED: SINCALIDE 5 MCG/5 ML VIAL IV PUSH ONE (10:35)
--- NOTE | 2017-08-28 11:48 | RADRPT ---
EXAM DATE/TIME: 08/28/2017 09:18 [facility] COMPARISON: No previous studies available for comparison. INDICATIONS : Right upper quadrant pain. DOSE: 4.1 mCi Tc99m Mebrofenin IV MEDICATION: 2.2 mcg Cholecystokinin IV; No symptomatic response. Cholecystokinin was administered by slow infusion over 8 minutes beginning at 60 minutes. MEDICAL HISTORY : Hepatitis C. Hypertension. SURGICAL HISTORY : Inguinal hernia repair. ENCOUNTER: Initial ACUITY: 1 day PAIN SCALE: 8/10 LOCATION: Right upper quadrant TECHNIQUE: Following the intravenous administration of radiotracer, dynamic sequential image were performed with continuous acquisition. Time-activity curves were generated. FINDINGS: HEPATIIC KINETICS: There is prompt uptake of radiotracer in the liver. No focal defects are seen. There is normal rate of washout from the hepatic parenchyma. BILIARY CLEARANCE: Activity is first seen in the extrahepatic biliary system at 10 minutes. There is normal excretion i nto the small bowel. GALLBLADDER: Activity is first seen in the gallbladder at 45 minutes. POST CHOLECYSTOKININ: After Cholecystokinin administration, there is no significant gallbladder response. Common bile duct kinetics are normal and there is no evidence of biliary obstruction. BILIARY ENTERIC REFLUX: None observed. CLINICAL: The patient was asymptomatic after Cholecystokinin administration. CONCLUSION: 1. No scintigraphic findings of acute cholecystitis. Gallbladder is identified at 45 minutes. 2. However, no significant gallbladder response to CCK. In the appropriate clinical setting, findings could represent a chronic cholecystitis. Ap Adams MD on August 28, 2017 at 11:43 Board Certified Radiologist. This report was verified electronically.
[2017-08-28] MEDS: ONDANSETRON HCL 4 MG/2 ML VIAL IVP PRN (12:44)
--- NOTE | 2017-08-28 13:35 | HHI.PR ---
Subjective Remarks Patient reports continued epigastric abdominal pain. Reports continued dry heaves. Denies any chest pain or shortness breath. Objective Vital Signs Date Time Temp Pulse Resp B/P (MAP) Pulse Ox O2 Delivery O2 Flow Rate FiO2 08/28/17 08:00 98.4 100 18 129/100 (110) 100 08/28/17 07:15 100 08/28/17 04:00 96.2 99 16 157/99 (118) 100 08/28/17 00:00 98.3 90 16 131/94 (106) 97 08/28/17 00:00 98.3 90 16 131/94 (106) 97 08/27/17 20:00 98.9 98 17 131/92 (105) 99 08/27/17 20:00 98.9 98 17 131/92 (105) 99 08/27/17 16:00 98.8 108 18 146/98 (114) 98 08/27/17 14:54 98.9 82 16 145/84 (104) 99 08/27/17 14:25 98.9 93 18 152/93 (112) 97 08/27/17 14:25 98.9 93 18 152/93 (112) 97 Room Air I/O 08/27/17 08/27/17 08/27/17 08/28/17 08/28/17 08/28/17 07:00 15:00 23:00 07:00 15:00 23:00 Intake Total 0 ml 870 ml 900 ml Output Total 1200 ml 1100 ml Balance -1200 ml -230 ml 900 ml Intake Oral 0 ml 720 ml IV Total 900 ml Other 150 ml Output Urine Total 1200 ml 1100 ml # Voids 4 # Bowel Movements 0 0 Result Diagram: 08/27/17 0427 08/27/17 0427 Objective Remarks GENERAL: pt sitting up in bed. Appears uncomfortable. Exam unchanged from yesterday SKIN: Warm and dry. HEAD: Normocephalic. EYES: No scleral icterus. No injection or drainage. NECK: Supple, trachea midline. No JVD. CARDIOVASCULAR: Regular rate and rhythm without murmurs, gallops, or rubs. RESPIRATORY: Breath sounds equal bilaterally. No accessory muscle use. GASTROINTESTINAL: Abdomen soft. Gastric tenderness to moderate palpation. No rebound or guarding. MUSCULOSKELETAL: No cyanosis, or edema. BACK: Nontender without obvious deformity. No CVA tenderness. A/P Assessment and Plan //Alcoholic pancreatitis CT of the abdomen/pelvis significant for abnormal pancreas with possible necrosis and possible underlying solid mass Gastroenterology consulted, appreciate recommendations MRI pending for further characterization Nothing by mouth IV fluid hydration = Appreciate GI assistance. Has post EGD today. Possible gastroparesis. Discontinue morphine. = 08/28. Lactate elevated at 3.8. HIDA scan with possible cholecystitis. Discussed with gastroenterology regarding utility // Hypokalemia Status post by mouth and IV replacement Monitor BMP = 08/27. Potassium 3.4. Replaced. // Hepatitis C Patient will need outpatient follow-up once acute medical conditions resolved // Alcohol abuse [facility] protocol Cessation counseling provided Monitor for signs of acute withdrawal = Patient continues with tachycardia, withdrawal. Continue scheduled and as needed benzodiazepines. Discharge Planning when tolerating po, and cleared by Jag Thomas MD Aug 28, 2017 13:35
[2017-08-28 16:00] VITALS: BP 120/89; PULSE 86; RESP 18; TEMP 99; O2SAT 99
--- NOTE | 2017-08-28 16:01 | HHI.GIFU ---
Subjective Remarks Mild tachycardia current heart rate 100 Mild diastolic elevation last BP 129/100 Afebrile awake, answers questions appropriately Abd. pain RUQ, and generalized BM today, loose tarry (Ryanne Jose) Objective Vitals I&O Vital Signs Date Time Temp Pulse Resp B/P (MAP) Pulse Ox O2 Delivery O2 Flow Rate FiO2 08/28/17 08:00 98.4 100 18 129/100 (110) 100 08/28/17 07:15 100 08/28/17 04:00 96.2 99 16 157/99 (118) 100 08/28/17 00:00 98.3 90 16 131/94 (106) 97 08/28/17 00:00 98.3 90 16 131/94 (106) 97 08/27/17 20:00 98.9 98 17 131/92 (105) 99 08/27/17 20:00 98.9 98 17 131/92 (105) 99 08/27/17 16:00 98.8 108 18 146/98 (114) 98 I/O 08/27/17 08/27/17 08/27/17 08/28/17 08/28/17 08/28/17 07:00 15:00 23:00 07:00 15:00 23:00 Intake Total 0 ml 870 ml 900 ml Output Total 1200 ml 1100 ml Balance -1200 ml -230 ml 900 ml Intake Oral 0 ml 720 ml IV Total 900 ml Other 150 ml Output Urine Total 1200 ml 1100 ml # Voids 4 # Bowel Movements 0 0 Laboratory Laboratory Tests Test 08/27/17 21:36 Lactic Acid Level 3.8 Imaging Last Impressions Hepatobiliary Scan Nuclear Medicine 08/28/17 0000 Signed Impressions: Service Date/Time: August 09:18 - CONCLUSION: 1. No scintigraphic findings of acute cholecystitis. Gallbladder is identified at 45 minutes. 2. However, no significant gallbladder response to CCK. In the appropriate clinical setting, findings could represent a chronic cholecystitis. Ap Adams MD Chest X-Ray 08/26/17 0000 Signed Impressions: Service Date/Time: Saturday, August 26, 2017 01:13 - CONCLUSION: No acute cardiopulmonary abnormality is identified. Terrell Franklin MD Abdomen/Pelvis CT 08/26/17 0000 Signed Impressions: Service Date/Time: Saturday, August 26, 2017 00:24 - CONCLUSION: 1. Abnormal pancreas with a tubular area of low density in the body and tail which could represent an abnormally dilated duct or could represent necrosis related to pancreatitis. There is some surrounding minimal inflammatory changes. An additional low density areas present in the pancreatic head. Suggest correlating with the appropriate laboratory values and suggest correlating with any prior imaging studies to assess for change. Followup pancreas protocol CT is suggested to assess for change and exclude an underlying solid mass. 2. Hepatomegaly with severe steatosis. 3. Other findings include bilateral nonobstructing renal stones and cholelithiasis. Terrell Franklin MD Abdomen MRI 08/26/17 0000 Signed Impressions: Service Date/Time: Saturday, August 26, 2017 12:57 - CONCLUSION: 1. Diffuse enlargement of pancreas with central tubular area of fluid attenuation which may represent a markedly dilated pancreatic duct or necrosis. ERCP may be helpful for further evaluation of this patient. No definite focal mass is identified. 2. Enlarged fatty liver. 3. Mild splenomegaly. 4. Cholelithiasis. 5. Calcified nonobstructing bilateral renal calculi. 6. Tiny right pleural effusion. Joey Prince MD Physical Exam HEENT: Pupils round and reactive to light; normocephalic; atraumatic; no jaundice. NECK: Neck is supple, no JVD, no lymphadenopathy. CHEST: Chest is clear to auscultation and percussion. CARDIAC: RRR, with milf tachycardia at times. ABDOMEN: Soft, nondistended, RUQ tenderness, and generalized mild bloating, bowel sounds are present in all four quadrants., EXTREMITIES: No clubbing, cyanosis, or edema. 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 Hx of stones. - hematemesis - Rule out shaan mcleod tear, - elevated LFTs - unclear etiology, abuses ETOH, - MRCP done on 08/26/17, abnormal pancreas with tubular area of low density in the body and tail which could represent dilated ducts or necrosis related to pancreatitis. Minimal inflammatory changes low density mass present on the pancreatic head follow-up pancreas protocol CT is suggested to exclude an underlying mass. Hepatomegaly with severe steatosis. Bilateral nonobstructing renal stones and cholelithiasis. - Hx hep c ab reactive, no follow up - EGD 08/27/17, per Dr. Hamilton. Results showed grade B esophagitis gastritis anthum, duodenitis, large amount of bile noted possible gastroparesis, hiatal hernia - HIDA done 08/28/17 shows possible chronic cholecystitis , continue to monitor symptoms no ERCP needed for now. - Anemia probable secondary to chronic disease. Currently stable at 11.9 to obvious bleeding - Discussed diet, hydration, the need to increase activity, requesting PO pain meds for Abd. pain. Nurse checking with attending. PLAN -Soft diet, low fat, no extra sugar -CMP in the a.m. monitor LFTs, bilirubin -PPI -Anti-reflux regimen -Biopsies are pending, EGD - Avoid NSAIDs, no Tylenol - monitor labs - ETOH cessation = After discharge patient will need to be seen in the outpatient setting for evaluation of his hepatitis C, AB reactive, Discussed process. pt seen by myself and Dr Hamilton and this note is written on her behalf (Ryanne Jose) Physician Comments seen, examined agree with above still pain, nausea we will keep him on full liquid diet, we will add Creon with meals mrcp we will consult surgery in am may need eus pending mrcp cbc, cmp, lipase, (Caren Hamilton MD) Ryanne Jose Aug 28, 2017 16:01 Caren Hamilton MD Aug 28, 2017 18:28
[2017-08-28 16:55] LABS: HEMOGLOBIN A1C 4.7 % (4.3-6.0)
[2017-08-28 20:00] VITALS: BP 126/99; PULSE 90; RESP 14; TEMP 99.3; O2SAT 97
[2017-08-28 21:33] LABS: AUTOMATED NEUTROPHIL # 6.6 TH/MM3 (1.8-7.7); BASOPHIL # 0.1 TH/MM3 (0-0.2); BASOPHIL % 1.3 % (0.0-2.0); EOSINOPHIL # 0.1 TH/MM3 (0-0.4); EOSINOPHIL % 0.5 % (0.0-4.0); HEMATOCRIT 40.5 % (39.0-51.0); LYMPH % 23.8 % (9.0-44.0); LYMPHOCYTE # 2.2 TH/MM3 (1.0-4.8); MEAN CELL VOLUME 93.7 FL (80.0-100.0); MEAN CORPUSCULAR HEMOGLOBIN 32.5 PG (27.0-34.0); MEAN CORPUSCULAR HGB CONC 34.6 % (32.0-36.0); MEAN PLATELET VOLUME 10.1 FL (7.0-11.0); MONO % 3.2 % (0.0-8.0); MONOCYTE # 0.3 TH/MM3 (0-0.9); NEUT % 71.2 % (16.0-70.0); PLATELET COUNT 181 TH/MM3 (150-450); RED BLOOD COUNT 4.32 MIL/MM3 (4.50-5.90); RED CELL DISTRIBUTION WIDTH 14.2 % (11.6-17.2); WHITE BLOOD COUNT 9.3 TH/MM3 (4.0-11.0)
[2017-08-28 21:47] LABS: ALBUMIN 3.2 GM/DL (3.4-5.0); BICARBONATE 27.9 MEQ/L (21.0-32.0); CREATININE 0.94 MG/DL (0.60-1.30); MAGNESIUM 1.7 MG/DL (1.5-2.5)
[2017-08-28 21:51] LABS: INDIRECT BILIRUBIN 0.6 MG/DL (0.0-0.8); PHOSPHORUS 2.7 MG/DL (2.5-4.9); TOTAL BILIRUBIN ADULT 1.6 MG/DL (0.2-1.0); TOTAL PROTEIN 7.8 GM/DL (6.4-8.2)
[2017-08-29] VITALS (8 sets, daily range): BP systolic 128–183; BP diastolic 83–96; PULSE 85–110; RESP 15–20; TEMP 97.7–100.3; O2SAT 95–99
[2017-08-29 05:34] LABS: ALT (GPT) 41 U/L (12-78)
[2017-08-29 05:36] LABS: ALKALINE PHOSPHATASE 251 U/L (45-117); TOTAL BILIRUBIN ADULT 1.4 MG/DL (0.2-1.0); TOTAL PROTEIN 7.1 GM/DL (6.4-8.2)
[2017-08-29 06:09] LABS: ALBUMIN 2.9 GM/DL (3.4-5.0); AST (GOT) 95 U/L (15-37); BICARBONATE 27.8 MEQ/L (21.0-32.0); BLOOD UREA NITROGEN 3 MG/DL (7-18); CHLORIDE 101 MEQ/L (98-107); CREATININE 0.86 MG/DL (0.60-1.30); GLOMERULAR FILTRATION RATE 107 ML/MIN (>89); GLUCOSE,RANDOM 108 MG/DL (74-106); SODIUM (NA) 138 MEQ/L (136-145)
[2017-08-29] MEDS: SODIUM CHLORIDE 0.9% FLUSH 10 ML FLUSH IV FLUSH SCH ×2 (09:00→20:07)
[2017-08-29] MEDS: THIAMINE HCL 100 MG TAB PO SCH (09:36)
--- NOTE | 2017-08-29 10:08 | RADRPT ---
EXAM DATE/TIME: 08/29/2017 08:56 [facility] COMPARISON: No previous studies available for comparison. INDICATIONS : Pancreatitis. MEDICAL HISTORY : Pancreatitis. SURGICAL HISTORY : Inguinal hernia repair. ENCOUNTER: Initial ACUITY: 1 day PAIN SCORE: 5/10 LOCATION: Abdomen TECHNIQUE: Multiplanar, multisequence magnetic resonance imaging of the abdomen was performed. High-resolution 3D dataset was utilized to reconstruct maximum-intensity projection (MIP) images. FINDINGS: Evidence for diffuse pancreatitis is evident. Gallbladder is small and contracted without stones. C ommon duct is small without stones. Marked fatty replacement of the liver. CONCLUSION: Negative for gallstones. Normal common duct. Significant pancreatitis. Heath Gustafson MD FACR on August 29, 2017 at 10:03 Board Certified Radiologist. This report was verified electronically.
--- NOTE | 2017-08-29 10:39 | HHI.PR ---
Subjective Remarks Patient seen this morning. Denies any chest pain or shortness of breath. Reports continued abdominal pain. Objective Vital Signs Date Time Temp Pulse Resp B/P (MAP) Pulse Ox O2 Delivery O2 Flow Rate FiO2 08/29/17 04:00 99.6 98 16 132/88 (103) 96 08/29/17 00:00 100.3 103 15 128/93 (105) 97 08/28/17 20:00 99.3 90 14 126/99 (108) 97 08/28/17 16:00 99.0 86 18 120/89 (99) 99 I/O 08/28/17 08/28/17 08/28/17 08/29/17 08/29/17 08/29/17 06:59 14:59 22:59 06:59 14:59 22:59 Intake Total 480 ml 350 ml Output Total 1500 ml Balance -1020 ml 350 ml Intake Oral 480 ml 350 ml Output Urine Total 1500 ml # Voids 4 3 # Bowel Movements 0 2 Result Diagram: 08/28/17211308/29/170 Objective Remarks GENERAL: pt sitting up in bed. Appears uncomfortable. Exam unchanged. SKIN: Warm and dry. HEAD: Normocephalic. EYES: No scleral icterus. No injection or drainage. NECK: Supple, trachea midline. No JVD. CARDIOVASCULAR: Regular rate and rhythm without murmurs, gallops, or rubs. RESPIRATORY: Breath sounds equal bilaterally. No accessory muscle use. GASTROINTESTINAL: Abdomen soft. Gastric tenderness to moderate palpation. No rebound or guarding. MUSCULOSKELETAL: No cyanosis, or edema. BACK: Nontender without obvious deformity. No CVA tenderness. A/P Assessment and Plan //Alcoholic pancreatitis //Possible cholecystitis //Suspected acute on chronic pancreatitis. CT of the abdomen/pelvis significant for abnormal pancreas with possible necrosis and possible underlying solid mass Gastroenterology consulted, appreciate recommendations MRI pending for further characterization Nothing by mouth IV fluid hydration = Appreciate GI assistance. Has post EGD today. Possible gastroparesis. Discontinue morphine. = 08/28. Lactate elevated at 3.8. HIDA scan with possible cholecystitis. Discussed with gastroenterology regarding utility = 08/29. Lactate improved. General surgery consult pending. Discussed with gastroenterology yesterday. MRCP pending. Brother GI assistance. We'll add narcotics when necessary pain. // Hypokalemia Status post by mouth and IV replacement Monitor BMP = 08/27. Potassium 3.4. Replaced. = 08/28. Potassium 3.4. Replaced again. Start on IV fluids with potassium. // Hepatitis C Patient will need outpatient follow-up once acute medical conditions resolved // Alcohol abuse [facility] protocol Cessation counseling provided Monitor for signs of acute withdrawal = Patient continues with tachycardia, withdrawal. Continue scheduled and as needed benzodiazepines. = 08/29. Appears to have improved. Taper Librium. K to monitor. Discharge Planning when tolerating po, and cleared by Jag Thomas MD Aug 29, 2017 10:39
[2017-08-29] MEDS ORDERED: MORPHINE SULFATE 4 MG/ML INJ IV PUSH PRN (10:45)
[2017-08-29] MEDS ORDERED: NALOXONE HCL 0.4 MG/ML AMP IV PUSH PRN (10:45)
[2017-08-29] MEDS ORDERED: POTASSIUM CHLOR 10 MEQ PREMIX 100 ML IV ONE (10:45)
[2017-08-29] MEDS: LIPASE/PROTEASE/AMYLASE (24,000/76,000/120,000) CAP PO SCH ×3 (12:00→16:30)
--- NOTE | 2017-08-29 14:00 | PD.CONS ---
cc: Scott Thurman MD HPI Service General Surgery Consult Requested By Dr. Hamilton Reason for Consult Pancreatitis; gallstones; abnormal HIDA scan Primary Care Physician No Primary Care Physician History of Present Illness This is a 26 year old male with a past medical history of hypertension, hepatitis C, liver dysfunction and cirrhosis. The patient has had off and on abdominal pain for a few months but on Friday started vomiting blood. He came to the ED for evaluation. The patient had a CT abdomen/pelvis that showed pancreatitis; an MRI of abdomen that showed enlarged pancreas and pancreatitis; A HIDA scan was obtained yesterday that indicated possible chronic cholecystis. An MRCP was completed today which shows no gallstones; normal common duct with significant pancreatitis. A General Surgery consultation has been requested. Review of Systems Constitutional: DENIES: Fatigue, Dizziness Endocrine: DENIES: Polydipsia, Polyuria, Polyphagia Eyes: DENIES: Diplopia, Eye inflammation Ears, nose, mouth, throat: DENIES: Hearing loss, Vertigo Respiratory: DENIES: Apneas Cardiovascular: DENIES: Chest pain, Palpitations Gastrointestinal: COMPLAINS OF: Abdominal pain, Nausea, Vomiting Genitourinary: DENIES: Urinary frequency Musculoskeletal: DENIES: Joint pain Integumentary: DENIES: Abnormal pigmentation Hematologic/lymphatic: DENIES: Bruising Immunologic/allergic: DENIES: Eczema Neurologic: DENIES: Abnormal gait, Headache Psychiatric: DENIES: Confusion, Mood changes, Depression Past Family Social History Past Medical History Hypertension Hepatitic C Cirrhosis Liver dysfunction Past Surgical History Inguinal hernia repair as an Reported Medications None Allergies: Coded Allergies: No Known Allergies (Unverified , 08/25/17) Active Ordered Medications Current Medications Medications (Trade) Dose Ordered Sig/Debbie Route Start Time Stop Time Status Last Admin (NS Flush) 2 ml UNSCH PRN IV FLUSH 08/26/17 04:15 (NS Flush) 2 ml BID IV FLUSH 08/26/17 09:00 08/28/17 09:00 (Tylenol) 650 mg Q4H PRN PO 08/26/17 04:15 (Zofran Inj) 4 mg Q6H PRN IVP 2/6/18 04:15 08/28/17 12:44 (Romazicon Inj) 0.2 mg Q1M PRN IV PUSH 08/26/17 06:30 (Ativan) 1 mg Q4H PRN PO 08/26/17 06:30 08/28/17 21:52 (Ativan Inj) 1 mg Q4H PRN IV PUSH 08/26/17 06:30 08/27/17 11:05 (Ativan) 2 mg Q2H PRN PO 08/26/17 06:30 (Ativan Inj) 2 mg Q2H PRN IV PUSH 08/26/17 06:30 (Ativan Inj) 2 mg Q1H PRN IV PUSH 08/26/17 06:30 (Ativan Inj) 2 mg Q15M PRN IV PUSH 08/26/17 06:30 (Vitamin B1) 100 mg DAILY PO 08/27/17 09:00 08/29/17 09:36 Lactated Ringer's 1,000 ml @ 30 mls/hr Q24H PRN IV 08/26/17 15:30 08/29/17 15:29 08/27/17 11:49 Sodium Chloride 500 ml @ 30 mls/hr [id number] PRN IV 08/26/17 15:30 08/29/17 15:29 (Lopressor) 25 mg BALER OPERATOR PRN PO 08/26/17 15:30 08/29/17 15:29 (Betadine 5% Antisepsis Kit) 1 applic BALER OPERATOR PRN EACH NARE 08/26/17 15:30 08/29/17 15:29 (Chlorhexidine 2% Cloth) 3 pack BALER OPERATOR PRN TOPICAL 08/26/17 15:30 08/29/17 15:29 (Creon 24-76-120) 1 cap TIDAC PO 08/29/17 08:00 08/29/17 12:08 (Librium) 5 mg BID PO 08/29/17 21:00 (Roxicodone) 10 mg Q4H PRN PO 08/29/17 10:45 08/29/17 12:08 (Morphine Inj) 4 mg Q3H PRN IV PUSH 08/29/17 10:45 (Roxicodone) 5 mg Q4H PRN PO 08/29/17 10:45 (Narcan Inj) 0.4 mg UNSCH PRN IV PUSH 08/29/17 10:45 Potassium Chloride/Sodium Chloride 1,000 ml @ 150 mls/hr Q6H40M IV 08/29/17 10:45 Family History noncontributory Social History Prior tobacco use---quit 8 months ago + ETOH use--- binge drinks up to 3 pints of vodka daily off and on for 11 years + history of illicit drug use in the past Physical Exam Vital Signs Vital Signs Date Time Temp Pulse Resp B/P (MAP) Pulse Ox O2 Delivery O2 Flow Rate FiO2 08/29/17 08:00 98.4 90 16 138/96 (110) 95 08/29/17 08:00 97.7 85 20 183/92 (122) 99 08/29/17 04:00 99.6 98 16 132/88 (103) 96 08/29/17 00:00 100.3 103 15 128/93 (105) 97 08/28/17 20:00 99.3 90 14 126/99 (108) 97 08/28/17 16:00 99.0 86 18 120/89 (99) 99 Physical Exam GENERAL: 26 year old male resting in bed no acute distress. SKIN: Warm and dry. Multiple tattoos. HEAD: Atraumatic. Normocephalic. EYES: Pupils equal and round. No scleral icterus. No injection or drainage. ENT: No nasal bleeding or discharge. Mucous membranes pink and moist. NECK: Trachea midline. CARDIOVASCULAR: Regular rate and rhythm. RESPIRATORY: No accessory muscle use. Clear to auscultation. Breath sounds equal bilaterally. GASTROINTESTINAL: Abdomen soft, non distended; Generalized abdominal pain with palpation in RUQ and LUQ. MUSCULOSKELETAL: Extremities without clubbing, cyanosis, or edema. No obvious deformities. NEUROLOGICAL: Awake and alert. No obvious cranial nerve deficits. Motor grossly within normal limits. Five out of 5 muscle strength in the arms and legs. Normal speech. PSYCHIATRIC: Appropriate mood and affect; insight and judgment normal. Laboratory Laboratory Tests Test 08/28/17 16:45 08/28/17 21:14 08/29/17 04:50 Urine Opiates Screen NEG Urine Barbiturates Screen NEG Urine Amphetamines Screen NEG Urine Benzodiazepines Screen POS Urine Cocaine Screen NEG Urine Cannabinoids Screen NEG White Blood Count 9.3 Red Blood Count 4.32 Hemoglobin 14.0 Hematocrit 40.5 Mean Corpuscular Volume 93.7 Mean Corpuscular Hemoglobin 32.5 Mean Corpuscular Hemoglobin Concent 34.6 Red Cell Distribution Width 14.2 Platelet Count 181 Mean Platelet Volume 10.1 Neutrophils (%) (Auto) 71.2 Lymphocytes (%) (Auto) 23.8 Monocytes (%) (Auto) 3.2 Eosinophils (%) (Auto) 0.5 Basophils (%) (Auto) 1.3 Neutrophils # (Auto) 6.6 Lymphocytes # (Auto) 2.2 Monocytes # (Auto) 0.3 Eosinophils # (Auto) 0.1 Basophils # (Auto) 0.1 CBC Comment DIFF FINAL Differential Comment Blood Urea Nitrogen 3 3 Creatinine 0.94 0.86 Random Glucose 120 108 Total Protein 7.8 7.1 Albumin 3.2 2.9 Calcium Level 9.0 9.0 Phosphorus Level 2.7 Magnesium Level 1.7 Alkaline Phosphatase 297 251 Aspartate Amino Transf (AST/SGOT) 122 95 Alanine Aminotransferase (ALT/SGPT) 46 41 Total Bilirubin 1.6 1.4 Direct Bilirubin 1.0 Sodium Level 136 138 Potassium Level 3.3 3.4 Chloride Level 102 101 Carbon Dioxide Level 27.9 27.8 Anion Gap 6 9 Estimat Glomerular Filtration Rate 96 107 Lactic Acid Level 1.4 Indirect Bilirubin 0.6 Lipase 57 Result Diagram: 08/28/17211308/29/17 0450 Imaging Last 48 hours Impressions Cholangiopancreatography MRI 08/29/17 0000 Signed Impressions: Service Date/Time: Tuesday, August 29, 2017 08:56 - CONCLUSION: Negative for gallstones. Normal common duct. Significant pancreatitis. Heath Gustafson MD FACR Hepatobiliary Scan Nuclear Medicine 08/28/17 0000 Signed Impressions: Service Date/Time: August 09:18 - CONCLUSION: 1. No scintigraphic findings of acute cholecystitis. Gallbladder is identified at 45 minutes. 2. However, no significant gallbladder response to CCK. In the appropriate clinical setting, findings could represent a chronic cholecystitis. Ap Adams MD Assessment and Plan Assessment and Plan 26 year old male with abdominal pain; pancreatitis secondary to ETOH use -Recommend complete abstinence of alcohol -No signs of acute cholecystitis -No acute General Surgical needs at this time; Will sign off; Please call with questions PATIENT SEEN ON ROUNDS WITH EVELYN WHO DOCUMENTED OUR VISIT. CLASSIC ALCOHOLIC PANCREATITIS. NO EVIDENCE OF CHOLECYSTITIS. RECOMMEND MEDICAL MANAGEMENT. ADVISED PATIENT HE WILL IF HE CONTINUES TO DRINK ALCOHOL. WILL SEE PRN. NO SURGICAL INTERVENTION WARRANTED. SCOTT THURMAN MD FACS Discussed Condition With Dr. Alon RIVAS Mr. Elliott Mitchell,Luzma RIVAS Aug 29, 2017 14:00 Scott Thurman MD Sep 01, 2017 14:05
[2017-08-29] MEDS: NS + KCL 20 MEQ INJ 1,000 ML IV SCH ×2 (14:33→23:22)
--- NOTE | 2017-08-29 16:02 | HHI.GIFU ---
Subjective Remarks Resting in the bed Awake speech appears mildly slurred, but understandable Abdomen mild bloating, taut Low-grade fever midnight last night, 100.3 (Ryanne Jose) Objective Vitals I&O Vital Signs Date Time Temp Pulse Resp B/P (MAP) Pulse Ox O2 Delivery O2 Flow Rate FiO2 08/29/17 08:00 98.4 90 16 138/96 (110) 95 08/29/17 08:00 97.7 85 20 183/92 (122) 99 08/29/17 04:00 99.6 98 16 132/88 (103) 96 08/29/17 00:00 100.3 103 15 128/93 (105) 97 08/28/17 20:00 99.3 90 14 126/99 (108) 97 08/28/17 16:00 99.0 86 18 120/89 (99) 99 I/O 08/28/17 08/28/17 08/28/17 08/29/17 08/29/17 08/29/17 07:00 15:00 23:00 07:00 15:00 23:00 Intake Total 480 ml 350 ml Output Total 1500 ml Balance -1020 ml 350 ml Intake Oral 480 ml 350 ml Output Urine Total 1500 ml # Voids 4 2 1 # Bowel Movements 0 2 Laboratory Laboratory Tests Test 08/28/17 16:45 08/28/17 21:14 08/29/17 04:50 Urine Opiates Screen NEG Urine Barbiturates Screen NEG Urine Amphetamines Screen NEG Urine Benzodiazepines Screen POS Urine Cocaine Screen NEG Urine Cannabinoids Screen NEG White Blood Count 9.3 Red Blood Count 4.32 Hemoglobin 14.0 Hematocrit 40.5 Mean Corpuscular Volume 93.7 Mean Corpuscular Hemoglobin 32.5 Mean Corpuscular Hemoglobin Concent 34.6 Red Cell Distribution Width 14.2 Platelet Count 181 Mean Platelet Volume 10.1 Neutrophils (%) (Auto) 71.2 Lymphocytes (%) (Auto) 23.8 Monocytes (%) (Auto) 3.2 Eosinophils (%) (Auto) 0.5 Basophils (%) (Auto) 1.3 Neutrophils # (Auto) 6.6 Lymphocytes # (Auto) 2.2 Monocytes # (Auto) 0.3 Eosinophils # (Auto) 0.1 Basophils # (Auto) 0.1 CBC Comment DIFF FINAL Differential Comment Blood Urea Nitrogen 3 3 Creatinine 0.94 0.86 Random Glucose 120 108 Total Protein 7.8 7.1 Albumin 3.2 2.9 Calcium Level 9.0 9.0 Phosphorus Level 2.7 Magnesium Level 1.7 Alkaline Phosphatase 297 251 Aspartate Amino Transf (AST/SGOT) 122 95 Alanine Aminotransferase (ALT/SGPT) 46 41 Total Bilirubin 1.6 1.4 Direct Bilirubin 1.0 Sodium Level 136 138 Potassium Level 3.3 3.4 Chloride Level 102 101 Carbon Dioxide Level 27.9 27.8 Anion Gap 6 9 Estimat Glomerular Filtration Rate 96 107 Lactic Acid Level 1.4 Indirect Bilirubin 0.6 Lipase 57 Imaging Last Impressions Cholangiopancreatography MRI 08/29/17 0000 Signed Impressions: Service Date/Time: Tuesday, August 29, 2017 08:56 - CONCLUSION: Negative for gallstones. Normal common duct. Significant pancreatitis. Heath Gustafson MD FACR Hepatobiliary Scan Nuclear Medicine 08/28/17 0000 Signed Impressions: Service Date/Time: August 09:18 - CONCLUSION: 1. No scintigraphic findings of acute cholecystitis. Gallbladder is identified at 45 minutes. 2. However, no significant gallbladder response to CCK. In the appropriate clinical setting, findings could represent a chronic cholecystitis. Ap Adams MD Chest X-Ray 08/26/17 0000 Signed Impressions: Service Date/Time: Saturday, August 26, 2017 01:13 - CONCLUSION: No acute cardiopulmonary abnormality is identified. Terrell Franklin MD Abdomen/Pelvis CT 08/26/17 0000 Signed Impressions: Service Date/Time: Saturday, August 26, 2017 00:24 - CONCLUSION: 1. Abnormal pancreas with a tubular area of low density in the body and tail which could represent an abnormally dilated duct or could represent necrosis related to pancreatitis. There is some surrounding minimal inflammatory changes. An additional low density areas present in the pancreatic head. Suggest correlating with the appropriate laboratory values and suggest correlating with any prior imaging studies to assess for change. Followup pancreas protocol CT is suggested to assess for change and exclude an underlying solid mass. 2. Hepatomegaly with severe steatosis. 3. Other findings include bilateral nonobstructing renal stones and cholelithiasis. Terrell Franklin MD Abdomen MRI 08/26/17 0000 Signed Impressions: Service Date/Time: Saturday, August 26, 2017 12:57 - CONCLUSION: 1. Diffuse enlargement of pancreas with central tubular area of fluid attenuation which may represent a markedly dilated pancreatic duct or necrosis. ERCP may be helpful for further evaluation of this patient. No definite focal mass is identified. 2. Enlarged fatty liver. 3. Mild splenomegaly. 4. Cholelithiasis. 5. Calcified nonobstructing bilateral renal calculi. 6. Tiny right pleural effusion. Joey Prince MD Physical Exam HEENT: Pupils round and reactive to light; normocephalic; atraumatic; pale, NECK: Neck is supple, no JVD, no lymphadenopathy. CHEST: Chest is clear to auscultation and percussion. CARDIAC: RRR, HR 90 ABDOMEN: Soft, taut, mild bloating, RUQ tenderness improved with PO pain med. bowel sounds are present in all four quadrants EXTREMITIES: No clubbing, cyanosis, or edema. 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 (Ryanne Jose) Assessment and Plan Plan ASSESSMENT/History - epigastric and RUQ pain - CT as above, dilated duct vs necrosis, cholelithiasis. Fatty liver disease - hematemesis , resolved - elevated LFTs - unclear etiology, abuses ETOH, - MRCP done on 08/26/17, abnormal pancreas with tubular area of low density in the body and tail which could represent dilated ducts or necrosis related to pancreatitis. Minimal inflammatory changes low density mass present on the pancreatic head follow-up pancreas protocol CT is suggested to exclude an underlying mass. Hepatomegaly with severe steatosis. Bilateral nonobstructing renal stones and cholelithiasis. - Hx hep c ab reactive, -Acute pancreatitis noted from MRCP, lipase level 57 - EGD 08/27/17, per Dr. Hamilton. Results showed grade B esophagitis gastritis anthum, duodenitis, large amount of bile noted possible gastroparesis, hiatal hernia - HIDA done 08/28/17 shows possible chronic cholecystitis , continue to monitor symptoms no ERCP needed for now. - Anemia probable secondary to chronic disease. 11 backup today to 14. - Discussed diet, lifestyle, and alcohol abstinence. Patient is planning on checking in a alcohol rehabilitation facility after this hospital admission. -MRCP on 08/29/17 shows negative for gallstones, normal common duct, significant pancreatitis Labs: Bilirubin decreased to 1.4, potassium 3.4, coagulopathy with PT INR 1.4, AST 95 ALT 41, alkaline phosphatase 251 Malnutrition albumin 2.9, probable secondary to his alcohol use. Tachycardia has resolved today heart rate is now 90 regular. - Avoid NSAIDs, no Tylenol discussed with the patient Patient is post MRCP, heart healthy diet low-fat 2 g sodium ordered. 08/29/17 abdominal pain and symptoms more controlled today, slow gradual improvement PLAN -Heart healthy diet, low fat, 2 gm sodium -Creon 24-76-120 1 3 times a day before meals -Thiamine 100 mg by mouth daily -PPI -Anti-reflux regimen -Biopsies are pending, EGD - monitor labs - ETOH cessation = After discharge patient will need to be seen in the outpatient setting for evaluation of his hepatitis C, AB reactive, Discussed process. pt seen by myself and Dr Hamilton and this note is written on her behalf (Ryanne Jose) Physician Comments seen, examined mrcp noted surgical consult appreciated consider eus next weeks if no improvement (Caren Hamilton MD) Ryanne Jose Aug 29, 2017 16:02 Caren Hamilton MD Aug 29, 2017 20:32
[2017-08-30] VITALS (9 sets, daily range): BP systolic 104–137; BP diastolic 65–96; PULSE 89–101; RESP 17–19; TEMP 96.8–98; O2SAT 95–97
[2017-08-30] MEDS: NS + KCL 20 MEQ INJ 1,000 ML IV SCH (06:33)
[2017-08-30 07:24] LABS: AUTOMATED NEUTROPHIL # 6.2 TH/MM3 (1.8-7.7); BASOPHIL # 0.1 TH/MM3 (0-0.2); BASOPHIL % 1.4 % (0.0-2.0); EOSINOPHIL # 0.2 TH/MM3 (0-0.4); EOSINOPHIL % 1.9 % (0.0-4.0); HEMATOCRIT 37.4 % (39.0-51.0); HEMOGLOBIN 12.6 GM/DL (13.0-17.0); LYMPH % 25.8 % (9.0-44.0); LYMPHOCYTE # 2.4 TH/MM3 (1.0-4.8); MEAN CELL VOLUME 95.5 FL (80.0-100.0); MEAN CORPUSCULAR HEMOGLOBIN 32.2 PG (27.0-34.0); MEAN CORPUSCULAR HGB CONC 33.7 % (32.0-36.0); MEAN PLATELET VOLUME 10.7 FL (7.0-11.0); MONO % 5.2 % (0.0-8.0); MONOCYTE # 0.5 TH/MM3 (0-0.9); NEUT % 65.7 % (16.0-70.0); PLATELET COUNT 135 TH/MM3 (150-450); RED BLOOD COUNT 3.92 MIL/MM3 (4.50-5.90); RED CELL DISTRIBUTION WIDTH 14.5 % (11.6-17.2); WHITE BLOOD COUNT 9.5 TH/MM3 (4.0-11.0)
[2017-08-30 07:43] LABS: ALBUMIN 2.8 GM/DL (3.4-5.0); BICARBONATE 25.3 MEQ/L (21.0-32.0); CALCIUM 8.4 MG/DL (8.5-10.1); CREATININE 0.78 MG/DL (0.60-1.30); DIRECT BILIRUBIN ADULT 0.7 MG/DL (0.0-0.2); MAGNESIUM 1.4 MG/DL (1.5-2.5); PHOSPHORUS 4.1 MG/DL (2.5-4.9)
[2017-08-30 07:47] LABS: INDIRECT BILIRUBIN 0.5 MG/DL (0.0-0.8); TOTAL BILIRUBIN ADULT 1.2 MG/DL (0.2-1.0); TOTAL PROTEIN 6.8 GM/DL (6.4-8.2)
[2017-08-30 07:53] LABS: HCV RNA PCR IU/ML LESS THAN 15 IU/mL (Not Detected)
[2017-08-30] MEDS: LIPASE/PROTEASE/AMYLASE (24,000/76,000/120,000) CAP PO SCH ×3 (08:26→15:26)
[2017-08-30] MEDS: THIAMINE HCL 100 MG TAB PO SCH (08:26)
[2017-08-30] MEDS: SODIUM CHLORIDE 0.9% FLUSH 10 ML FLUSH IV FLUSH SCH (08:28)
[2017-08-30] MEDS ORDERED: MAGNESIUM OXIDE 400 MG TAB PO ONE (09:15)
[2017-08-30] MEDS ORDERED: POTASSIUM CHLORIDE 20 MEQ CONTROLLED RELEASE TAB PO ONE (09:15)
[2017-08-30] MEDS ORDERED: THIA100 PO (12:47)
[2017-08-30] MEDS ORDERED: MULTTAB67 PO (12:47)
[2017-08-30] MEDS ORDERED: CHLO5CAP4 PO (12:47)
[2017-08-30] MEDS ORDERED: OXYC-395 PO (12:47)
[2017-08-30] MEDS ORDERED: CREON24 PO (12:47)
--- NOTE | 2017-08-30 12:47 | HHI.DCPOC ---
Discharge Care Plan Diagnosis: (1) Pancreatitis, alcoholic, acute Your Health Problems Are: Difficulty with ADL Exercise Tolerance Goals to Promote Your Health * To prevent worsening of your condition and complications * To maintain your health at the optimal level Directions to Meet Your Goals Take your medications as prescribed Follow your dietary instruction Follow activity as directed Keep your appointments as scheduled Take your immunizations and boosters as scheduled If your symptoms worsen call your PCP, if no PCP go to Urgent Care Center or Emergency Room Smoking is Dangerous to Your Health. Avoid second hand smoke Call the 24-hour hour crisis hotline for domestic abuse at Garret Galan MD Aug 30, 2017 12:47
[2017-08-30] MEDS ORDERED: PANT40TA3 PO (12:56)
--- NOTE | 2017-08-30 12:56 | HHI.DS ---
Discharge Summary Admission Date Aug 26, 2017 at 04:02 Discharge Date: Aug 30, 2017 Admitting Diagnosis Alcohol Withdrawal, Acute on Chronic Pancreatitis (1) Pancreatitis, alcoholic, acute ICD Code: K85.20 - Alcohol induced acute pancreatitis without necrosis or infection Diagnosis: Principal Procedures EGD Brief History - From Admission 26-year-old male with a past medical history significant for hepatitis C and alcohol abuse presents to the emergency department for evaluation of epigastric abdominal pain. The patient reports that the pain radiates to his back. He endorses several episodes of bloody emesis that started yesterday. He also complains of "the shakes." The patient reports that he drinks approximately 1- 3 pints of vodka a day for days to weeks at a time. CBC/BMP: 08/30/17 0641 08/30/17 0641 Significant Findings Laboratory Tests Test 08/27/17 21:36 08/28/17 16:45 08/28/17 21:14 08/29/17 04:50 Lactic Acid Level 3.8 mmol/L (0.4-2.0) Urine Benzodiazepines Screen POS (NEG) Red Blood Count 4.32 MIL/MM3 (4.50-5.90) Neutrophils (%) (Auto) 71.2 % (16.0-70.0) Blood Urea Nitrogen 3 MG/DL (7-18) 3 MG/DL (7-18) Random Glucose 120 MG/DL (74-106) 108 MG/DL (74-106) Albumin 3.2 GM/DL (3.4-5.0) 2.9 GM/DL (3.4-5.0) Alkaline Phosphatase 297 U/L (45-117) 251 U/L (45-117) Aspartate Amino Transf (AST/SGOT) 122 U/L (15-37) 95 U/L (15-37) Total Bilirubin 1.6 MG/DL (0.2-1.0) 1.4 MG/DL (0.2-1.0) Direct Bilirubin 1.0 MG/DL (0.0-0.2) Potassium Level 3.3 MEQ/L (3.5-5.1) 3.4 MEQ/L (3.5-5.1) Lipase 57 U/L (73-393) Test 08/30/17 06:41 Red Blood Count 3.92 MIL/MM3 (4.50-5.90) Hemoglobin 12.6 GM/DL (13.0-17.0) Hematocrit 37.4 % (39.0-51.0) Platelet Count 135 TH/MM3 (150-450) Blood Urea Nitrogen 3 MG/DL (7-18) Albumin 2.8 GM/DL (3.4-5.0) Calcium Level 8.4 MG/DL (8.5-10.1) Magnesium Level 1.4 MG/DL (1.5-2.5) Alkaline Phosphatase 227 U/L (45-117) Aspartate Amino Transf (AST/SGOT) 84 U/L (15-37) Total Bilirubin 1.2 MG/DL (0.2-1.0) Direct Bilirubin 0.7 MG/DL (0.0-0.2) Lipase 57 U/L (73-393) Imaging Last Impressions Cholangiopancreatography MRI 08/29/17 0000 Signed Impressions: Service Date/Time: Tuesday, August 29, 2017 08:56 - CONCLUSION: Negative for gallstones. Normal common duct. Significant pancreatitis. Heath Gustafson MD FACR Hepatobiliary Scan Nuclear Medicine 08/28/17 0000 Signed Impressions: Service Date/Time: August 09:18 - CONCLUSION: 1. No scintigraphic findings of acute cholecystitis. Gallbladder is identified at 45 minutes. 2. However, no significant gallbladder response to CCK. In the appropriate clinical setting, findings could represent a chronic cholecystitis. Ap Adams MD Chest X-Ray 08/26/17 0000 Signed Impressions: Service Date/Time: Saturday, August 26, 2017 01:13 - CONCLUSION: No acute cardiopulmonary abnormality is identified. Terrell Franklin MD Abdomen/Pelvis CT 08/26/17 0000 Signed Impressions: Service Date/Time: Saturday, August 26, 2017 00:24 - CONCLUSION: 1. Abnormal pancreas with a tubular area of low density in the body and tail which could represent an abnormally dilated duct or could represent necrosis related to pancreatitis. There is some surrounding minimal inflammatory changes. An additional low density areas present in the pancreatic head. Suggest correlating with the appropriate laboratory values and suggest correlating with any prior imaging studies to assess for change. Followup pancreas protocol CT is suggested to assess for change and exclude an underlying solid mass. 2. Hepatomegaly with severe steatosis. 3. Other findings include bilateral nonobstructing renal stones and cholelithiasis. Terrell Franklin MD Abdomen MRI 08/26/17 0000 Signed Impressions: Service Date/Time: Saturday, August 26, 2017 12:57 - CONCLUSION: 1. Diffuse enlargement of pancreas with central tubular area of fluid attenuation which may represent a markedly dilated pancreatic duct or necrosis. ERCP may be helpful for further evaluation of this patient. No definite focal mass is identified. 2. Enlarged fatty liver. 3. Mild splenomegaly. 4. Cholelithiasis. 5. Calcified nonobstructing bilateral renal calculi. 6. Tiny right pleural effusion. Joey Prince MD PE at Discharge GENERAL: Well-developed and well-nourished in no distress SKIN: Warm and dry. HEAD: Atraumatic. Normocephalic. EYES: Pupils equal and round. No scleral icterus. No injection or drainage. ENT: No nasal bleeding or discharge. Mucous membranes pink and moist. NECK: Trachea midline. No JVD. CARDIOVASCULAR: Regular rate and rhythm. RESPIRATORY: No accessory muscle use. Clear to auscultation. Breath sounds equal bilaterally. GASTROINTESTINAL: Abdomen soft, slightly tender epigastric area, nondistended. MUSCULOSKELETAL: Extremities without clubbing, cyanosis, or edema. No obvious deformities. NEUROLOGICAL: Awake and alert. No obvious cranial nerve deficits. Motor grossly within normal limits. Five out of 5 muscle strength in the arms and legs. Normal speech. No tremors PSYCHIATRIC: Appropriate mood and affect; insight and judgment normal. Hospital Course Alcoholic pancreatitis. Improving continue supportive treatment. Continue pain management consult regarding narcotics to minimize use in light of gastroparesis. Alcohol cessation patient will start alcohol rehab program this coming Friday. Tapered Librium. Evaluated by surgery no evidence of acute cholecystitis. Per GI, EUS op if no improvement Hypokalemia and hypomagnesemia secondary to alcoholism. Improved Hepatitis C. Patient will need outpatient follow-up once acute medical conditions resolved EGD showed esophagitis, gastritis, duodenitis and gastroparesis. Patient to follow pathology report with GI. Avoid NSAIDs. Antireflux mechanics as discussed with the patient. Continue PPI Low risk for DVT Pt Condition on Discharge: Stable Discharge Disposition: Discharge Home Discharge Time: > 30 minutes Discharge Instructions DIET: Follow Instructions for: Heart Healthy Diet Activities you can perform: Regular-No Restrictions Activities to Avoid: Driving Follow up Referrals: Appointment for Follow Up - 09/01/17 with alcohol detox program Gastroenterology - 1 Week PCP Follow-up - 1 Week New Medications: Multiple Vitamin (Multiple Vitamin) 1 Tab 1 TAB PO DAILY for Nutritional Supplement, #30 TAB 0 Refills Chlordiazepoxide HCl (Chlordiazepoxide HCl) 5 Mg Capsule 5 MG PO BID for Alcohol Detox, #4 CAP Oxycodone (Oxycodone) 10 Mg Tab 10 MG PO Q8HR PRN for PAIN SCALE 6 TO 10, #6 TAB Pancrelipase (Creon) 24,000-76,000-120,000 Units Cap 1 CAP PO TIDAC for pancreatitis, #90 CAP Pantoprazole (Pantoprazole) 40 Mg Tab 40 MG PO Q12HR for Electrolyte Replacement, #60 TAB Thiamine HCl (Gnp Vitamin B-1) 100 Mg Tab 100 MG PO DAILY for Alcohol Detox, #30 TAB Garret Galan MD Aug 30, 2017 12:56
[2017-08-30] MEDS ORDERED: PANTOPRAZOLE SOD 40 MG DELAYED RELEASE TAB PO SCH (13:00)
[2017-08-30] MEDS ORDERED: MAGNESIUM OXIDE 400 MG TAB PO SCH (21:00)
== END 2017-08-30 18:58 | disposition home or self-care (01) | DRG 438 ==
LOC: NEPC 22:11 → NEDA 08-26 04:02 → N06B 08-26 06:39
PROVIDERS: ADMIT Internal Medicine; ATTEND Internal Medicine
PROC: 0DB68ZX Excision of Stomach, Via Natural or Artificial Opening Endoscopic, Diagnostic (ICD-10-PCS; 2017-08-27)
PROC: 0DB38ZX Excision of Lower Esophagus, Via Natural or Artificial Opening Endoscopic, Diagnostic (ICD-10-PCS; 2017-08-27)
PROC: 0DB98ZX Excision of Duodenum, Via Natural or Artificial Opening Endoscopic, Diagnostic (ICD-10-PCS; principal; 2017-08-27 14:02)
DX: K85.20 Alcohol induced acute pancreatitis without necrosis or infection (principal); K22.11 Ulcer of esophagus with bleeding; E83.42 Hypomagnesemia; K31.84 Gastroparesis; K74.60 Unspecified cirrhosis of liver; F10.230 Alcohol dependence with withdrawal, uncomplicated; B19.20 Unspecified viral hepatitis C without hepatic coma; E87.6 Hypokalemia; K86.0 Alcohol-induced chronic pancreatitis; I10 Essential (primary) hypertension; D63.8 Anemia in other chronic diseases classified elsewhere; K29.80 Duodenitis without bleeding; K29.70 Gastritis, unspecified, without bleeding; F10.229 Alcohol dependence with intoxication, unspecified; N20.0 Calculus of kidney; Y90.6 Blood alcohol level of 120-199 mg/100 ml; Z87.891 Personal history of nicotine dependence
CPT/HCPCS: 36600; 71045; 74177; 74181; 74183; 76377; 78227; 80053; 80069; 80076; 80307; 81001; 82140; 82805; 83036; 83605; 83690; 83735; 85025; 85610; 85730; 86850; 86900; 86901; 86902; 86920; 86922; 87522; 87902; 88305; 88312; 93005; 94664; 96361; 96374; 96375; A9537; A9579; C9113; J2060; J2270; J2405; J2805; J3010; J3475; J3480; J7030; J7120; Q9967

== ENCOUNTER 2017-09-22 19:44 | Inpatient (IN) | payer SELFPAY ==
[~2017-09-22 19:44] MED LIST: CHLO5CAP4 PO; CREON24 PO; MULTTAB67 PO; OXYC-395 PO; PANT40TA3 PO; THIA100 PO
[2017-09-22 19:59] VITALS: BP 131/89; PULSE 135; RESP 20; TEMP 102.1; O2SAT 98
[2017-09-22] MEDS ORDERED: IBUPROFEN 600 MG TAB PO ONE (20:15)
[2017-09-22] MEDS ORDERED: ONDANSETRON ODT 4 MG TAB PO ONE (20:15)
[2017-09-23] VITALS (7 sets, daily range): BP systolic 103–137; BP diastolic 65–85; PULSE 99–213; RESP 16–19; TEMP 97.8–100.9; O2SAT 95–100
[2017-09-23] MEDS ORDERED: ONDANSETRON HCL 4 MG/2 ML VIAL IV ONE (01:30)
[2017-09-23] MEDS ORDERED: SODIUM CHLOR 0.9% 1000 ML INJ 1,000 ML IV ONE ×2 (01:30→03:30)
--- NOTE | 2017-09-23 01:33 | PD ---
HPI Chief Complaint: Abdominal Pain Time Seen by Provider: 01:21 Travel History International Travel<30 days: No Contact w/Intl Traveler<30days: No Traveled to known affect area: No History of Present Illness HPI The patient is a 26 year old male who presents to the [facility] emergency department with a history of abdominal pain and right sided back pain that began 1 week ago. The pain is "hollow" in character with intermittent sharp pains. It feels like he was "hit in the abdomen and had the wind knocked out of me". He has a history of pancreatitis and alcohol abuse. He was last admitted to the hospital in August for this. 3 days ago he developed nausea and vomiting. He has not been able to tolerate holding down liquids or food. He is in rehab and has been clean and sober for 35 days. His bowels have been soft and irregular, occurring 2-3 per day. It is pedro in color. He has had a dry cough for 1 and 1/2 days. He has had central chest pain for the last week with shortness of breath that worsened over the last 2 days. Otherwise on review of systems, the patient denies having any history of neck pain, urinary symptoms, or neurologic symptoms. The patient was not aware he had a fever until he arrived in the emergency department. His fever is 102. He denies having any nasal discharge, nasal congestion, or sore throat PCP: None. COUNTS INCLUDE 234 BEDS AT THE [facility] Past Medical History Narrative Medical The patient's past medical history is significant for hepatitis C, Alcohol abuse , kidney stones x2, Cirrhosis, and Pancreatitis. Asthma: Yes (as a child) Cardiovascular Problems: Yes (HTN, PALPITATIONS) Cirrhosis: Yes Hepatitis: Yes (C) Kidney Stones: Yes Seizures: Yes Past Surgical History Narrative Surgical The patient's past surgical history is significant for hernia repair as an infant, variceal banding in [place]. Abdominal Surgery: Yes (HERNIA REPAIR A BABY) Oral Surgery: Yes Social History Alcohol Use: No (Clean and sober for 35 days) Tobacco Use: No Substance Use: No Allergies-Medications (Allergen,Severity, Reaction): Coded Allergies: No Known Allergies (Unverified , 08/25/17) Reported Meds & Prescriptions Reported Meds & Active Scripts Active Pantoprazole (Pantoprazole Sodium) 40 Mg Tab 40 Mg PO Q12HR Multiple Vitamin 1 Tab 1 Tab PO DAILY Gnp Vitamin B-1 (Thiamine HCl) 100 Mg Tab 100 Mg PO DAILY Creon (Amylase/Lipase/Protease) 24,000-76,000-120,000 Units Cap 1 Cap PO TIDAC Chlordiazepoxide HCl 5 Mg Capsule 5 Mg PO BID Oxycodone (Oxycodone HCl) 10 Mg Tab 10 Mg PO Q8HR PRN Review of Systems Except as stated in HPI: all other systems reviewed are Neg General / Constitutional: Positive: Fever, Chills Eyes: No: Visual changes HENT: Positive: Congestion, No: Headaches Cardiovascular: Positive: Chest Pain or Discomfort, Dyspnea on exertion Respiratory: Positive: Cough, Shortness of Breath Gastrointestinal: Positive: Nausea, Vomiting, Abdominal Pain, Changes in Bowel Habits, Indigestion, No: Diarrhea, Loss of Appetite Genitourinary: No: Urgency, Frequency, Dysuria Musculoskeletal: No: Pain Skin: No Rash Neurologic: Positive: Weakness (Generalized weakness), No: Focal Abnormalities , Change in Mentation, Slurred Speech, Sensory Disturbance Psychiatric: No: Depression Endocrine: No: Polydipsia Hematologic/Lymphatic: No: Easy Bruising Physical Exam Narrative General: The patient is a well-developed well-nourished male in no acute distress. Head and Neck exam: Head is normocephalic atraumatic. Eyes: EOMI, pupils are equal round and reactive to light. Nose: Midline septum with pink mucous membranes Mouth: Dentition unremarkable. Moist mucus membranes. Posterior oropharynx is not erythematous. No tonsillar hypertrophy. Uvula midline. Airway patent. The patient has geographic tongue. Neck: No palpable lymphadenopathy. No nuchal rigidity. No thyromegaly. Cardiovascular: Sinus tachycardia in the 120 without murmurs, gallops, or rubs. No pulse deficit to the extremities on simultaneous auscultation and palpation of his radial artery. Lungs: Clear to auscultation bilaterally. No wheezes, rhonchi, or rales. Abdomen: Soft, with tenderness on palpation of the midepigastric and right upper quadrant of the abdomen. No other tenderness on palpation of the other quadrants of the abdomen no guarding, rebound, or rigidity. Normal bowel sounds are audible. No tenderness on palpation of McBurney's point. Negative Feliciano sign. Extremities: No clubbing, cyanosis, or edema. 2+ pulses in all 4 extremities. No calf tenderness on palpation Back: No spinous process tenderness to palpation. Bilateral CVA tenderness noted on palpation. Neurologic Exam: Grossly nonfocal. Skin Exam: No rash noted. Intact skin that is warm and dry. Data Data Last Documented VS Vital Signs Date Time Temp Pulse Resp B/P (MAP) Pulse Ox O2 Delivery O2 Flow Rate FiO2 09/22/17 19:59 102.1 135 20 131/89 (103) 98 Orders Orders Complete Blood Count With Diff (09/22/17 20:01) Comprehensive Metabolic Panel (09/22/17 20:01) Lipase (09/22/17 20:01) Prothrombin Time / Inr (Pt) (09/22/17 20:01) Act Partial Throm Time (Ptt) (09/22/17 20:01) Urinalysis - C+S If Indicated (09/22/17 20:01) Ibuprofen (Motrin) (09/22/17 20:15) Ondansetron Odt (Zofran Odt) (09/22/17 20:15) Electrocardiogram (09/23/17 01:27) Chest, Single Ap (09/23/17 01:27) Ct Abd/Pel W Iv Contrast(Rout) (09/23/17 01:27) Iv Access Insert/Monitor (09/23/17 01:27) Ecg Monitoring (09/23/17 01:27) Oximetry (09/23/17 01:27) Drug Screen, Random Urine (09/23/17 01:27) Lactic Acid Sepsis Protocol (09/23/17 01:27) Blood Culture (09/23/17 01:27) Sodium Chlor 0.9% 1000 Ml Inj (Ns 1000 M (09/23/17 01:30) Ondansetron Inj (Zofran Inj) (09/23/17 01:30) Morphine Inj (Morphine Inj) (09/23/17 02:30) Alcohol (Ethanol) (09/23/17 02:09) Sodium Chlor 0.9% 1000 Ml Inj (Ns 1000 M (09/23/17 03:30) Influenzae A/B Antigen (09/23/17 03:32) Iohexol 350 Inj (Omnipaque 350 Inj) (09/23/17 03:48) Creatine Kinase (Cpk) (09/23/17 03:49) Ckmb (Isoenzyme) Profile (09/23/17 03:49) Troponin I (09/23/17 03:49) Admit Order (Ed Use Only) (09/23/17 04:11) Piperacil-Tazo 4.5 Gm Premix (Zosyn 4.5 (09/23/17 04:15) Labs Laboratory Tests Test 09/23/17 02:09 White Blood Count 14.3 TH/MM3 Red Blood Count 4.25 MIL/MM3 Hemoglobin 12.5 GM/DL Hematocrit 36.9 % Mean Corpuscular Volume 86.8 FL Mean Corpuscular Hemoglobin 29.4 PG Mean Corpuscular Hemoglobin Concent 33.9 % Red Cell Distribution Width 14.8 % Platelet Count 338 TH/MM3 Mean Platelet Volume 9.9 FL Neutrophils (%) (Auto) 68.6 % Lymphocytes (%) (Auto) 21.9 % Monocytes (%) (Auto) 8.8 % Eosinophils (%) (Auto) 0.3 % Basophils (%) (Auto) 0.4 % Neutrophils # (Auto) 9.8 TH/MM3 Lymphocytes # (Auto) 3.1 TH/MM3 Monocytes # (Auto) 1.3 TH/MM3 Eosinophils # (Auto) 0.0 TH/MM3 Basophils # (Auto) 0.1 TH/MM3 CBC Comment DIFF FINAL Differential Comment Prothrombin Time 13.2 SEC Prothromb Time International Ratio 1.3 RATIO Activated Partial Thromboplast Time 28.7 SEC Blood Urea Nitrogen 5 MG/DL Creatinine 0.83 MG/DL Random Glucose 121 MG/DL Total Protein 8.2 GM/DL Albumin 3.2 GM/DL Calcium Level 9.1 MG/DL Alkaline Phosphatase 110 U/L Aspartate Amino Transf (AST/SGOT) 28 U/L Alanine Aminotransferase (ALT/SGPT) 28 U/L Total Bilirubin 0.6 MG/DL Sodium Level 136 MEQ/L Potassium Level 3.7 MEQ/L Chloride Level 101 MEQ/L Carbon Dioxide Level 25.6 MEQ/L Anion Gap 9 MEQ/L Estimat Glomerular Filtration Rate 111 ML/MIN Lactic Acid Level 1.2 mmol/L Total Creatine Kinase 15 U/L Troponin I LESS THAN 0.02 NG/ML Lipase 178 U/L Ethyl Alcohol Level LESS THAN 3 MG/DL MDM Medical Decision Making Medical Screen Exam Complete: Yes Emergency Medical Condition: Yes Medical Record Reviewed: Yes Interpretation(s) Last Impressions Chest X-Ray 09/23/17126 Signed Impressions: Service Date/Time: Saturday, September 23, 2017 01:50 - CONCLUSION: No acute cardiopulmonary abnormality is identified. Terrell Franklin MD Abdomen/Pelvis CT 09/23/17126 Signed Impressions: Service Date/Time: Saturday, September 23, 2017 03:41 - CONCLUSION: 1. Persistent abnormal pancreas indicating persistent or residual inflammatory changes. There is a abnormally dilated duct within the pancreas and there are new inflammatory changes extending inferior and superior from the tail of the pancreas with partially organized fluid collections. The largest measures 5.7 cm and abuts the gastric wall. 2. Stable nonacute findings include severe hepatic steatosis, cholelithiasis, and splenomegaly. Terrell Franklin MD Differential Diagnosis Acute pancreatitis, versus exacerbation of chronic pancreatitis, versus acute cholecystitis, versus influenza, versus pneumonia, versus pulmonary embolism Narrative Course During the course of the patient's emergency department visit, the patient's history, examination, and differential diagnosis were reviewed with the patient. The patient was placed on a monitoring analyst with oximetry and frequent blood pressure monitoring. The patient had IV access obtained and blood work sent for analysis. There was a prolonged wait to get back to the emergency department bed and out in the triage for the fever the patient was given ibuprofen, Zofran oral dissolving tablet. An EKG shows a sinus tachycardia with a short RI interval, heart rate of 102, QRS duration 96 ms, QTC 397 ms without any acute ST segment elevation. The patient was initially provided normal saline 1 L IV fluid bolus, morphine for pain, Zofran for nausea. The patient's laboratory studies were reviewed and remarkable for a white count of 14.3, hemoglobin 12.5, platelets 338 with a monocyte 8.8, CMP is remarkable for BUN of 5, glucose 121, albumin 3.2, lipase 178, lactic acid 1.2, PT 13.2, INR 1.3, PTT 28.7. Alcohol level less than 3. Influenza testing was negative. Cardiac enzymes within normal limits. Radiology studies were reviewed and remarkable for chest x-ray that shows no acute cardiopulmonary disease. CT scan of the abdomen and pelvis shows persistent abnormal pancreas indicating persistent or residual inflammatory changes there is an abnormal dilated duct within the pancreas that there are new inflammatory changes extending inferior and superior from the tail of the pancreas with partially organized fluid collections the largest of which measures 5.7 cm and abuts the gastric wall. The patient was started on Zosyn IV. Blood cultures 2 were sent for analysis prior to antibiotic being started. The patient's results were discussed with the patient, including the plan of care. I explained that further testing and/ or monitoring is indicated based on the patient's history, examination, and/ or laboratory findings. Therefore, I recommended admission for additional evaluation. The patient expressed understanding and was agreeable with this plan. The patient was admitted to the hospital in stable condition and sent to a bed under the care of the [facility]. Physician Communication Physician Communication The patient's case including history, pertinent physical examination findings, and laboratory studies were discussed with Dr. Davis. It was agreed that the patient would be admitted to the [facility] service. Diagnosis Primary Impression: Acute pancreatitis Qualified Codes: K85.92 - Acute pancreatitis with infected necrosis, unspecified Additional Impressions: Fluid collection of pancreas Febrile illness Admitting Information Admitting Physician Requests: Admit Zabrina Almanza MD Sep 23, 2017 01:33
--- NOTE | 2017-09-23 02:11 | RADRPT ---
EXAM DATE/TIME: 09/23/2017 01:50 [facility] COMPARISON: CHEST SINGLE AP, August 26, 2017, 1:13. INDICATIONS : Short of breath. MEDICAL HISTORY : None. SURGICAL HISTORY : None. ENCOUNTER: Initial ACUITY: 1 day PAIN SCORE: 0/10 LOCATION: Bilateral chest FINDINGS: Portable AP view of the chest demonstrates a normal-sized cardiac silhouette. No effusion, consolidat ion, or pneumothorax is visualized. The bones and soft tissues demonstrate no acute abnormality. The lungs are underinflated. CONCLUSION: No acute cardiopulmonary abnormality is identified. Terrell Franklin MD on September 23, 2017 at 2:09 Board Certified Radiologist. This report was verified electronically.
[2017-09-23] MEDS ORDERED: MORPHINE SULFATE 4 MG/ML INJ IV PUSH ONE (02:30)
[2017-09-23 02:42] LABS: AUTOMATED NEUTROPHIL # 9.8 TH/MM3 (1.8-7.7); BASOPHIL # 0.1 TH/MM3 (0-0.2); BASOPHIL % 0.4 % (0.0-2.0); EOSINOPHIL % 0.3 % (0.0-4.0); HEMATOCRIT 36.9 % (39.0-51.0); HEMOGLOBIN 12.5 GM/DL (13.0-17.0); LYMPH % 21.9 % (9.0-44.0); LYMPHOCYTE # 3.1 TH/MM3 (1.0-4.8); MEAN CELL VOLUME 86.8 FL (80.0-100.0); MEAN CORPUSCULAR HEMOGLOBIN 29.4 PG (27.0-34.0); MEAN CORPUSCULAR HGB CONC 33.9 % (32.0-36.0); MEAN PLATELET VOLUME 9.9 FL (7.0-11.0); MONO % 8.8 % (0.0-8.0); MONOCYTE # 1.3 TH/MM3 (0-0.9); NEUT % 68.6 % (16.0-70.0); PLATELET COUNT 338 TH/MM3 (150-450); RED BLOOD COUNT 4.25 MIL/MM3 (4.50-5.90); RED CELL DISTRIBUTION WIDTH 14.8 % (11.6-17.2); WHITE BLOOD COUNT 14.3 TH/MM3 (4.0-11.0)
[2017-09-23 02:47] LABS: INTERNATIONAL NORMALIZED RATIO 1.3 RATIO; PROTHROMBIN TIME - PATIENT 13.2 SEC (9.8-11.6)
[2017-09-23 02:56] LABS: ALBUMIN 3.2 GM/DL (3.4-5.0); AST (GOT) 28 U/L (15-37); BICARBONATE 25.6 MEQ/L (21.0-32.0); BLOOD UREA NITROGEN 5 MG/DL (7-18); CALCIUM 9.1 MG/DL (8.5-10.1); CHLORIDE 101 MEQ/L (98-107); CREATININE 0.83 MG/DL (0.60-1.30); GLOMERULAR FILTRATION RATE 111 ML/MIN (>89); GLUCOSE,RANDOM 121 MG/DL (74-106); SODIUM (NA) 136 MEQ/L (136-145)
[2017-09-23 02:59] LABS: ALKALINE PHOSPHATASE 110 U/L (45-117); ALT (GPT) 28 U/L (12-78); TOTAL BILIRUBIN ADULT 0.6 MG/DL (0.2-1.0); TOTAL PROTEIN 8.2 GM/DL (6.4-8.2)
[2017-09-23] MEDS ORDERED: IOHEXOL 350 MG/ML 10 ML VIAL (for RAD DIAG) IVCONTRAST ONE (03:48)
--- NOTE | 2017-09-23 04:04 | RADRPT ---
EXAM DATE/TIME: 09/23/2017 03:41 [facility] COMPARISON: MRCP W/O CONTRAST, August 29, 2017, 8:56. MRI ABDOMEN W & W/O CONTRAST, August 26, 2017, 12:57. CT ABDOMEN & PELVIS W CONTRAST, August 26, 2017, 0:24. INDICATIONS : Right upper qaudrant and flank pain past 3 days. IV CONTRAST: 90 cc Omnipaque 350 (iohexol) IV ORAL CONTRAST: No oral contrast ingested. RADIATION DOSE: 15.69 CTDIvol (mGy) MEDICAL HISTORY : Cardiovascular disease. Hypertension. Pancreatitis.Cirrhosis Hep C Renal stones SURGICAL HISTORY : Inguinal hernia repair. ENCOUNTER: Initial ACUITY: 3 days PAIN SCALE: 7/10 LOCATION: Right upper quadrant flank TECHNIQUE: Volumetric scanning of the abdomen and pelvis was performed. Using automated exposure control and ad justment of the mA and/or kV according to patient size, radiation dose was kept as low as reasonably achievable to obtain optimal diagnostic quality images. DICOM format image data is available electro nically for review and comparison. FINDINGS: LOWER LUNGS: The visualized lower lungs are clear. LIVER: Severe decreased density without lesion. There is no dilation of the biliary tree. There are small calcified stones in the gallbladder. SPLEEN: The spleen measures 17.4 cm. PANCREAS: There is enlargement of the pancreas with persistent dilated tubular structure in the body and tail a nd head. There are surrounding inflammatory changes with partially organized collection extending fro m the pancreatic tail to the wall of the stomach measuring approximately 5.7 x 3.8 cm. Additional inf lammatory process extends inferiorly from the tail of the pancreas into the mesentery and abuts the p roximal small bowel. These findings are new since the prior study. KIDNEYS: Normal in size and shape. There is no mass or hydronephrosis. There are stable small bilateral nonob structing stones measuring up to 3 mm. ADRENAL GLANDS: Within normal limits. VASCULAR: There is no aortic aneurysm. BOWEL/MESENTERY: The stomach, small bowel, and colon demonstrate no acute abnormality. There is no free intraperitone al air. ABDOMINAL WALL: Within normal limits. RETROPERITONEUM: There is no lymphadenopathy. BLADDER: No wall thickening or mass. REPRODUCTIVE: Within normal limits. INGUINAL: There is no lymphadenopathy or hernia. MUSCULOSKELETAL: No acute abnormality. CONCLUSION: 1. Persistent abnormal pancreas indicating persistent or residual inflammatory changes. There is a ab normally dilated duct within the pancreas and there are new inflammatory changes extending inferior a nd superior from the tail of the pancreas with partially organized fluid collections. The largest sahyy sures 5.7 cm and abuts the gastric wall. 2. Stable nonacute findings include severe hepatic steatosis, cholelithiasis, and splenomegaly. Terrell Franklin MD on September 23, 2017 at 3:53 Board Certified Radiologist. This report was verified electronically.
[2017-09-23] MEDS ORDERED: PIPERACIL-TAZO 4.5 GM PREMIX 100 ML IV ONE (04:15)
[2017-09-23 04:40] LABS: TROPONIN I LESS THAN 0.02 NG/ML (0.02-0.05)
[2017-09-23] MEDS ORDERED: LORazepam 2 MG/ML VIAL IV PUSH PRN ×4 (05:15)
[2017-09-23] MEDS ORDERED: NALOXONE HCL 0.4 MG/ML AMP IV PUSH PRN (05:15)
[2017-09-23] MEDS ORDERED: MAGNESIUM HYDROXIDE SUSP 30 ML CUP PO PRN (05:15)
[2017-09-23] MEDS ORDERED: LORazepam 2 MG TAB PO PRN (05:15)
[2017-09-23] MEDS ORDERED: FLUMAZENIL 0.5 MG/5 ML VIAL IV PUSH PRN (05:15)
[2017-09-23] MEDS ORDERED: SODIUM CHLORIDE 0.9% FLUSH 10 ML FLUSH IV FLUSH PRN (05:15)
[2017-09-23] MEDS ORDERED: LACTULOSE SYRUP 20 GM/30 ML CUP PO PRN (05:15)
[2017-09-23] MEDS ORDERED: SENNOSIDES 8.6 MG TAB PO PRN (05:15)
[2017-09-23] MEDS ORDERED: LORazepam 1 MG TAB PO PRN (05:15)
[2017-09-23] MEDS ORDERED: BISACODYL 10 MG SUPP RECTAL PRN (05:15)
[2017-09-23] MEDS: SODIUM CHLOR 0.9% 1000 ML INJ 1,000 ML IV SCH ×4 (06:02→22:24)
[2017-09-23] MEDS: MORPHINE SULFATE 4 MG/ML INJ IV PUSH PRN ×6 (06:03→23:04)
[2017-09-23] MEDS: THIAMINE INJ 100 MG in SODIUM CHLORIDE 0.9% INJ 100 ML IV SCH (06:35)
[2017-09-23 07:45] LABS: BLOOD, URINE NEG (NEG); GLUCOSE,URINE NEG (NEG); KETONE, URINE NEG (NEG); MUCUS URINE FEW /lpf (OCC); NITRITE,URINE NEG (NEG); PH, URINE 6.5 (5.0-8.5); SQUAMOUS EPITHELIAL CELL URINE <1 /hpf (0-5); URINE COLOR DARK-YELLOW (YELLW/STRAW); URINE LEUKOCYTE ESTERASE NEG (NEG)
[2017-09-23 07:49] LABS: BILIRUBIN, URINE NEG (NEG)
[2017-09-23] MEDS: MULTIVITAMIN INJ 10 ML, FOLIC ACID INJ 1 MG in SODIUM CHLORID 0.9% 500 ML INJ 500 ML IV SCH (08:23)
[2017-09-23] MEDS: SODIUM CHLORIDE 0.9% FLUSH 10 ML FLUSH IV FLUSH SCH ×2 (08:24→20:02)
[2017-09-23] MEDS: DOCUSATE SODIUM 50 MG/SENNA 8.6 MG TAB PO SCH ×2 (08:32→20:02)
--- NOTE | 2017-09-23 08:41 | PD.CONS ---
HPI History of Present Illness This is a 26 year old male with hx ETOH abuse, pancreatitis, shaan mcleod tear who presented with epigatric and RUQ pain, decreased appetite, n/v. Onset 1 week ago and worsening. Pain is constant. He says he had a fever when he got here. He denies any etoh consumption since 08/23/17. He has lost 30 lbs in week and a half. Denies blood in emesis. No diarrhea. He was evaluated by our service 08/26/17 for similar. At that time he was drinking 1-[address] scan 08/26/17 showed abnormal pancreas with tubular area low density coulb be abnormally dilated duct vs necrosis r/t pancreatitis, cholelithiasis, hepatomegaly. He had an EGD 08/27/[address] Hamilton that showed grade b esophagitis , gastritis, duodenitis, poss gastroparesis, hiatal hernia. He was discharged on creon and PPI and is still taking them. (Patty Rosales) PFSH Past Medical History Alcohol abuse Hepatitis C pancreatitis Past Surgical History hernia repair as (Patty Rosales) Coded Allergies: No Known Allergies (Unverified , 08/25/17) Family History DM - father Social History quit etoh recently, sober 35 days, former heavy drinker denies tobacco (Patty Rosales) Review of Systems Constitutional: COMPLAINS OF: Fatigue, Fever, Weight loss Endocrine: DENIES: Polydipsia Eyes: DENIES: Blurred vision Ears, nose, mouth, throat: DENIES: Hearing loss Respiratory: COMPLAINS OF: Cough Cardiovascular: DENIES: Chest pain Gastrointestinal: COMPLAINS OF: Abdominal pain, Nausea, Vomiting, Anorexia, DENIES: Black stools, Bloody stools, Diarrhea, Hematemesis Genitourinary: DENIES: Hematuria Musculoskeletal: DENIES: Muscle aches Integumentary: DENIES: Jaundice Hematologic/lymphatic: DENIES: Bruising Immunologic/allergic: DENIES: Eczema Neurologic: DENIES: Abnormal gait Psychiatric: DENIES: Confusion (Patty Rosales) GI Exam Vitals I&O Vital Signs Date Time Temp Pulse Resp B/P (MAP) Pulse Ox O2 Delivery O2 Flow Rate FiO2 09/23/17 08:20 16 09/23/17 08:20 97.8 99 16 103/65 (78) 98 Room Air 09/23/17 08:20 16 98 Room Air 09/23/17 08:20 16 09/23/17 08:00 16 09/23/17 06:35 18 09/23/17 06:07 100 18 124/84 (97) 98 09/23/17 04:30 100 Room Air 09/23/17 04:30 18 09/22/17 19:59 102.1 135 20 131/89 (103) 98 I/O 09/22/17 09/22/17 09/22/17 09/23/17 09/23/17 09/23/17 07:00 15:00 23:00 07:00 15:00 23:00 Intake Total 2100 ml 101 ml Balance 2100 ml 101 ml Intake IV Total 2100 ml 101 ml # Bowel Movements 0 Imaging Last Impressions Chest X-Ray 09/23/17126 Signed Impressions: Service Date/Time: Saturday, September 23, 2017 01:50 - CONCLUSION: No acute cardiopulmonary abnormality is identified. Terrell Franklin MD Abdomen/Pelvis CT 09/23/17126 Signed Impressions: Service Date/Time: Saturday, September 23, 2017 03:41 - CONCLUSION: 1. Persistent abnormal pancreas indicating persistent or residual inflammatory changes. There is a abnormally dilated duct within the pancreas and there are new inflammatory changes extending inferior and superior from the tail of the pancreas with partially organized fluid collections. The largest measures 5.7 cm and abuts the gastric wall. 2. Stable nonacute findings include severe hepatic steatosis, cholelithiasis, and splenomegaly. Terrell Franklin MD Laboratory Test 09/23/17 02:09 09/23/17 04:59 White Blood Count 14.3 TH/MM3 Red Blood Count 4.25 MIL/MM3 Hemoglobin 12.5 GM/DL Hematocrit 36.9 % Mean Corpuscular Volume 86.8 FL Mean Corpuscular Hemoglobin 29.4 PG Mean Corpuscular Hemoglobin Concent 33.9 % Red Cell Distribution Width 14.8 % Platelet Count 338 TH/MM3 Mean Platelet Volume 9.9 FL Neutrophils (%) (Auto) 68.6 % Lymphocytes (%) (Auto) 21.9 % Monocytes (%) (Auto) 8.8 % Eosinophils (%) (Auto) 0.3 % Basophils (%) (Auto) 0.4 % Neutrophils # (Auto) 9.8 TH/MM3 Lymphocytes # (Auto) 3.1 TH/MM3 Monocytes # (Auto) 1.3 TH/MM3 Eosinophils # (Auto) 0.0 TH/MM3 Basophils # (Auto) 0.1 TH/MM3 CBC Comment DIFF FINAL Differential Comment Prothrombin Time 13.2 SEC Prothromb Time International Ratio 1.3 RATIO Activated Partial Thromboplast Time 28.7 SEC Blood Urea Nitrogen 5 MG/DL Creatinine 0.83 MG/DL Random Glucose 121 MG/DL Total Protein 8.2 GM/DL Albumin 3.2 GM/DL Calcium Level 9.1 MG/DL Alkaline Phosphatase 110 U/L Aspartate Amino Transf (AST/SGOT) 28 U/L Alanine Aminotransferase (ALT/SGPT) 28 U/L Total Bilirubin 0.6 MG/DL Sodium Level 136 MEQ/L Potassium Level 3.7 MEQ/L Chloride Level 101 MEQ/L Carbon Dioxide Level 25.6 MEQ/L Anion Gap 9 MEQ/L Estimat Glomerular Filtration Rate 111 ML/MIN Lactic Acid Level 1.2 mmol/L Total Creatine Kinase 15 U/L Troponin I LESS THAN 0.02 NG/ML Lipase 178 U/L Ethyl Alcohol Level LESS THAN 3 MG/DL Urine Color DARK-YELLOW Urine Turbidity CLEAR Urine pH 6.5 Urine Specific [place] 1.050 Urine Protein 30 mg/dL Urine Glucose (UA) NEG mg/dL Urine Ketones NEG mg/dL Urine Occult Blood NEG Urine Nitrite NEG Urine Bilirubin NEG Urine Urobilinogen 2.0 MG/DL Urine Leukocyte Esterase NEG Urine RBC LESS THAN 1 /hpf Urine WBC 3 /hpf Urine Squamous Epithelial Cells <1 /hpf Urine Mucus FEW /lpf Microscopic Urinalysis Comment CULT NOT INDICATED Urine Opiates Screen POS Urine Barbiturates Screen NEG Urine Amphetamines Screen NEG Urine Benzodiazepines Screen POS Urine Cocaine Screen NEG Urine Cannabinoids Screen NEG Date/Time Source Procedure Growth Status 09/23/17 02:10 Blood Peripheral Aerobic Blood Culture Pending Received 09/23/17 02:10 Blood Peripheral Anaerobic Blood Culture Pending Received 09/23/17 04:11 Nasal Aspirate Influenza Types A,B Antigen (MEGHA) - Final NEGATIVE FOR FLU A AND B ANTIGEN.... Complete Physical Examination HEENT: PERRL; normocephalic; atraumatic; no jaundice. CHEST: CTA respirations shallow, inhibited by pain CARDIAC: RRR ABDOMEN: Soft, mild distention upper quadrants, diffusely TTP ; bowel sounds are present in all four quadrants. EXTREMITIES: No clubbing, cyanosis, or edema. SKIN: Normal; no rash; no jaundice. + tattoos CLINICAL RESEARCH COORDINATOR: No focal deficits; alert and oriented times three. (Patty Rosales) Assessment and Plan Plan ASSESSMENT/History - epigastric and RUQ pain - chronic pancreatitis, poss pseudocysts. not etoh in 1 month can drain pseudocysts if/when mature CT 09/23/17 --> persistent abnormal pancreas, dilated pancreatic duct, new inflammatory changes, partially organized fluid collections largest of which is 5.7 cm abutting gastric wall, fatty liver, cholelithiasis, splenomegaly. HIDA done 08/28/17 shows possible chronic cholecystitis EGD 08/27/17, per Dr. Hamilton. Results showed grade B esophagitis gastritis anthum, duodenitis, large amount of bile noted possible gastroparesis, hiatal hernia MRCP 08/26/17--> abnormal pancreas, dilated ducts or necrosis related to pancreatitis, Hepatomegaly, fatty liver PLAN - MRCP - EUS if/when cysts mature - trial clear liquids - continue creon - continue PPI - further recs as case unfolds pt seen by myself and Dr Francois and this note is on his behalf (Patty Rosales) Physician Comments Seen and examined, plan as lined up above. Thank you for the consult. (Meagan Francois MD) Patty Rosales Sep 23, 2017 08:41 Meagan Francois MD Sep 23, 2017 11:38
[2017-09-23] MEDS: PANTOPRAZOLE SODIUM 40 MG VIAL IV PUSH SCH ×2 (09:45→20:58)
--- NOTE | 2017-09-23 12:51 | HHI.HP ---
[facility] Service [place] [facility] Primary Care Physician No Primary Care Physician Admission Diagnosis Acute Pancreatitis with pancreatic fluid collection Diagnoses: (1) Acute recurrent pancreatitis Chief Complaint: Abdominal pain Travel History International Travel<30 Days: No Contact w/Intl Traveler <30 Da: No Traveled to Known Affected Are: No History of Present Illness 26-year-old male with a history of pancreatitis, alcohol abuse presented to the ED for evaluation of worsening abdominal pain rated 7/10 in intensity described as constant and stabbing with radiation to his back associated with intractable nausea and vomiting worse over the past 3 days over ongoing over the past 10 days. She'll report a 30 pound weight loss secondary to decreased appetite, but denies any diarrhea or GI bleed. He recently had EGD on 08/27/17. Patient reported being sober over the past 35 days. Complain of occasional shortness of breath however denies any chest pain. Review of Systems Except as stated in HPI: all other systems reviewed are Neg Past Family Social History Past Medical History Alcohol abuse Hepatitis C pancreatitis Past Surgical History hernia repair as infant Reported Medications Creon PPI Allergies: Coded Allergies: No Known Allergies (Unverified , 08/25/17) Family History DM, Alcohol - father Social History quit ETOH recently, sober 35 days, former heavy drinker denies tobacco Physical Exam Vital Signs Vital Signs Date Time Temp Pulse Resp B/P (MAP) Pulse Ox O2 Delivery O2 Flow Rate FiO2 09/23/17 12:28 99.1 213 16 137/85 (102) 99 09/23/17 08:20 16 09/23/17 08:20 97.8 99 16 103/65 (78) 98 Room Air 09/23/17 08:20 16 98 Room Air 09/23/17 08:20 16 09/23/17 08:00 16 09/23/17 06:35 18 09/23/17 06:07 100 18 124/84 (97) 98 09/23/17 04:30 100 Room Air 09/23/17 04:30 18 09/22/17 19:59 102.1 135 20 131/89 (103) 98 Physical Exam GENERAL: This is a well-nourished, well-developed patient, in no apparent distress. SKIN: No rashes, ecchymoses or lesions. Cool and dry. HEAD: Atraumatic. Normocephalic. No temporal or scalp tenderness. EYES: Pupils equal round and reactive. Extraocular motions intact. No scleral icterus. No injection or drainage. ENT: Nose without bleeding, purulent drainage or septal hematoma. Throat without erythema, tonsillar hypertrophy or exudate. Uvula midline. Airway patent. NECK: Trachea midline. No JVD or lymphadenopathy. Supple, nontender, no meningeal signs. CARDIOVASCULAR: Regular rate and rhythm without murmurs, gallops, or rubs. RESPIRATORY: Clear to auscultation. Breath sounds equal bilaterally. No wheezes , rales, or rhonchi. GASTROINTESTINAL: Abdomen soft, mildly tender, nondistended. No hepato- splenomegaly, or palpable masses. No guarding. MUSCULOSKELETAL: Extremities without clubbing, cyanosis, or edema. No joint tenderness, effusion, or edema noted. No calf tenderness. Negative Homans sign bilaterally. NEUROLOGICAL: Awake and alert. Cranial nerves II through XII intact. Motor and sensory grossly within normal limits. Five out of 5 muscle strength in all muscle groups. Normal speech. Laboratory Laboratory Tests Test 09/23/17 02:09 09/23/17 04:59 White Blood Count 14.3 Red Blood Count 4.25 Hemoglobin 12.5 Hematocrit 36.9 Mean Corpuscular Volume 86.8 Mean Corpuscular Hemoglobin 29.4 Mean Corpuscular Hemoglobin Concent 33.9 Red Cell Distribution Width 14.8 Platelet Count 338 Mean Platelet Volume 9.9 Neutrophils (%) (Auto) 68.6 Lymphocytes (%) (Auto) 21.9 Monocytes (%) (Auto) 8.8 Eosinophils (%) (Auto) 0.3 Basophils (%) (Auto) 0.4 Neutrophils # (Auto) 9.8 Lymphocytes # (Auto) 3.1 Monocytes # (Auto) 1.3 Eosinophils # (Auto) 0.0 Basophils # (Auto) 0.1 CBC Comment DIFF FINAL Differential Comment Prothrombin Time 13.2 Prothromb Time International Ratio 1.3 Activated Partial Thromboplast Time 28.7 Blood Urea Nitrogen 5 Creatinine 0.83 Random Glucose 121 Total Protein 8.2 Albumin 3.2 Calcium Level 9.1 Alkaline Phosphatase 110 Aspartate Amino Transf (AST/SGOT) 28 Alanine Aminotransferase (ALT/SGPT) 28 Total Bilirubin 0.6 Sodium Level 136 Potassium Level 3.7 Chloride Level 101 Carbon Dioxide Level 25.6 Anion Gap 9 Estimat Glomerular Filtration Rate 111 Lactic Acid Level 1.2 Total Creatine Kinase 15 Troponin I LESS THAN 0.02 Lipase 178 Ethyl Alcohol Level LESS THAN 3 Urine Color DARK-YELLOW Urine Turbidity CLEAR Urine pH 6.5 Urine Specific [place] 1.050 Urine Protein 30 Urine Glucose (UA) NEG Urine Ketones NEG Urine Occult Blood NEG Urine Nitrite NEG Urine Bilirubin NEG Urine Urobilinogen 2.0 Urine Leukocyte Esterase NEG Urine RBC LESS THAN 1 Urine WBC 3 Urine Squamous Epithelial Cells <1 Urine Mucus FEW Microscopic Urinalysis Comment CULT NOT INDICATED Urine Opiates Screen POS Urine Barbiturates Screen NEG Urine Amphetamines Screen NEG Urine Benzodiazepines Screen POS Urine Cocaine Screen NEG Urine Cannabinoids Screen NEG Date/Time Source Procedure Growth Status 09/23/17 02:10 Blood Peripheral Aerobic Blood Culture Pending Received 09/23/17 02:10 Blood Peripheral Anaerobic Blood Culture Pending Received 09/23/17 04:11 Nasal Aspirate Influenza Types A,B Antigen (MEGHA) - Final NEGATIVE FOR FLU A AND B ANTIGEN.... Complete Result Diagram: 09/23/1720809/23/17208 Imaging Last Impressions Chest X-Ray 09/23/17126 Signed Impressions: Service Date/Time: Saturday, September 23, 2017 01:50 - CONCLUSION: No acute cardiopulmonary abnormality is identified. Terrell Franklin MD Abdomen/Pelvis CT 09/23/17126 Signed Impressions: Service Date/Time: Saturday, September 23, 2017 03:41 - CONCLUSION: 1. Persistent abnormal pancreas indicating persistent or residual inflammatory changes. There is a abnormally dilated duct within the pancreas and there are new inflammatory changes extending inferior and superior from the tail of the pancreas with partially organized fluid collections. The largest measures 5.7 cm and abuts the gastric wall. 2. Stable nonacute findings include severe hepatic steatosis, cholelithiasis, and splenomegaly. Terrell Franklin MD Septic Shock Reassessment Septic shock perfusion: reassessment completed Caprini VTE Risk Assessment Caprini VTE Risk Assessment: No/Low Risk (score <= 1) Caprini Risk Assessment Model Point Value = 1 Point Value = 2 Point Value = 3 Point Value = 5 Age 41-60 Minor surgery BMI > 25 kg/m2 Swollen legs Varicose veins or History of unexplained or recurrent spontaneous Oral contraceptives or hormone replacement Sepsis (< 1 month) Serious lung disease, including pneumonia (< 1 month) Abnormal pulmonary function Acute myocardial infarction Congestive heart failure (< 1 month) History of inflammatory bowel disease Medical patient at bed rest Age 61-74 Arthroscopic surgery Major open surgery (> 45 min) Laparoscopic surgery (> 45 min) Malignancy Confined to bed (> 72 hours) Immobilizing plaster cast Central venous access Age >= 75 History of VTE Family history of VTE Factor V Leiden Prothrombin [id number] Lupus anticoagulant Anticardiolipin antibodies Elevated serum homocysteine Heparin-induced thrombocytopenia Other congenital or acquired thrombophilia Stroke (< 1 month) Elective arthroplasty Hip, pelvis, or leg fracture Acute spinal cord injury (< 1 month) Prophylaxis Regimen Total Risk Factor Score Risk Level Prophylaxis Regimen 0-1 Low Early ambulation 2 Moderate Order ONE of the following: *Sequential Compression Device (SCD) *Heparin 5000 units SQ BID 3-4 Higher Order ONE of the following medications: *Heparin 5000 units SQ TID *Enoxaparin/Lovenox 40 mg SQ daily (WT < 150 kg, CrCl > 30 mL/min) *Enoxaparin/Lovenox 30 mg SQ daily (WT < 150 kg, CrCl > 10-29 mL/min) *Enoxaparin/Lovenox 30 mg SQ BID (WT < 150 kg, CrCl > 30 mL/min) AND/OR *Sequential Compression Device (SCD) 5 or more Highest Order ONE of the following medications: *Heparin 5000 units SQ TID (Preferred with Epidurals) *Enoxaparin/Lovenox 40 mg SQ daily (WT < 150 kg, CrCl > 30 mL/min) *Enoxaparin/Lovenox 30 mg SQ daily (WT < 150 kg, CrCl > 10-29 mL/min) *Enoxaparin/Lovenox 30 mg SQ BID (WT < 150 kg, CrCl > 30 mL/min) AND *Sequential Compression Device (SCD) Assessment and Plan Problem List: (1) Acute recurrent pancreatitis ICD Code: K85.90 - Acute pancreatitis without necrosis or infection, unspecified Assessment and Plan 26 Year-old man with Acute on chronic recurrent pancreatitis with possible pseudocyst Appreciate input from GI MRCP pending Continue with Creon, PPI Clear liquids and advance diet as tolerated Monitor lipase level Alcohol abuse Currently sober per patient however alcohol cessation counseling provided Deneen ACHARYAly minal DVT prophylaxis: B-SCDs Code Status Full code Discussed Condition With Patient Physician Certification 2 Midnight Certification Type: Admission for Inpatient Services Order for Inpatient Services The services are ordered in accordance with Medicare regulations or non- Medicare payer requirements, as applicable. In the case of services not specified as inpatient-only, they are appropriately provided as inpatient services in accordance with the 2-midnight benchmark. Estimated LOS (days): 2 days is the estimated time the patient will need to remain in the hospital, assuming treatment plan goals are met and no additional complications. Post-Hospital Plan: Not yet determined Mike Richard MD Sep 23, 2017 12:51
--- NOTE | 2017-09-23 15:38 | RADRPT ---
EXAM DATE/TIME: 09/23/2017 14:25 [place] COMPARISON: CT ABDOMEN & PELVIS W CONTRAST, September 23, 2017, 3:41. MRCP W/O CONTRAST, August 29, 2017, 8:56. INDICATIONS : Abdominal pain. MEDICAL HISTORY : Pancreatitis. SURGICAL HISTORY : Hernia ENCOUNTER: Subsequent ACUITY: 2 day PAIN SCORE: 3/10 LOCATION: upper quadrant abdomen TECHNIQUE: Multiplanar, multisequence magnetic resonance imaging of the abdomen was performed. High-resolution 3D dataset was utilized to reconstruct maximum-intensity projection (MIP) images. FINDINGS: INTRAHEPATIC BILE DUCTS: Within normal limits. No significant anatomical variant is present. EXTRAHEPATIC BILE DUCTS: The common bile duct measures 5 mm No stone or filling defect is identified. GALLBLADDER: No stones, wall thickening, or pericholecystic fluid. However, a few tiny stones are seen in the gall bladder on the CT scan of the abdomen of 09/23/2017. These are not well-demonstrated on this exam. LIVER: Normal size and signal intensity. No concerning liver lesion is identified on this non-contrast exam. There is fatty infiltration of liver. No significant changes. PANCREAS: There continues to be diffuse prominent inflammatory changes of the entire pancreas characteristic of pancreatitis. Inflammatory changes appear to be increased compared to the prior MRCP. Inflammatory c hanges are about the same compared to the prior CT scan from 09/23/2017. There is some complex fluid co llections involving the body and tail of the pancreas. This is about the same compared to the prior C T scan of the abdomen. OTHER: The remaining visualized structures demonstrate no acute abnormality on this non-contrast exam. CONCLUSION: 1. There continues to be diffuse prominent pancreatitis with inflammatory changes involving the entir e pancreas. Complex fluid collections are again seen involving the body and tail the pancreas without significant change compared to the CT scan from 09/23/2017. These are probably developing pseudocyst. 2. There is fatty infiltration of the liver. 3. No biliary tract obstruction is demonstrated. Juan A Shi MD on September 23, 2017 at 15:30 Board Certified Radiologist. This report was verified electronically.
[2017-09-23] MEDS: PIPERACIL-TAZO 3.375 GM PREMIX 50 ML IV SCH ×3 (16:23→23:48)
[2017-09-23] MEDS: ONDANSETRON HCL 4 MG/2 ML VIAL IVP PRN ×2 (16:24→23:04)
[2017-09-23] MEDS: LIPASE/PROTEASE/AMYLASE (24,000/76,000/120,000) CAP PO SCH (17:00)
--- NOTE | 2017-09-23 18:50 | EKG ---
Date Performed: 09/23/2017 Time Performed: 04:09:15 PTAGE: 26 years EKG: SINUS TACHYCARDIA WITH SHORT OK INTERVAL ABNORMAL RHYTHM ECG Since the prior tracing, there has been no significant change PREVIOUS TRACING : 08/26/2017 11.49 DOCTOR: Pasha Almanza Interpretating Date/Time 09/23/2017 18:48:32
[2017-09-24] MEDS: MORPHINE SULFATE 4 MG/ML INJ IV PUSH PRN ×7 (02:30→23:43)
[2017-09-24] MEDS: SODIUM CHLOR 0.9% 1000 ML INJ 1,000 ML IV SCH ×4 (02:30→21:16)
[2017-09-24 03:40] VITALS: BP 103/71; PULSE 111; RESP 18; TEMP 99.7; O2SAT 97
[2017-09-24] MEDS: THIAMINE INJ 100 MG in SODIUM CHLORIDE 0.9% INJ 100 ML IV SCH (04:30)
[2017-09-24] MEDS: PIPERACIL-TAZO 3.375 GM PREMIX 50 ML IV SCH ×4 (05:44→23:43)
[2017-09-24] MEDS: MULTIVITAMIN INJ 10 ML, FOLIC ACID INJ 1 MG in SODIUM CHLORID 0.9% 500 ML INJ 500 ML IV SCH (05:44)
[2017-09-24] MEDS: ONDANSETRON HCL 4 MG/2 ML VIAL IVP PRN ×3 (05:44→23:42)
[2017-09-24 07:30] VITALS: BP 114/63; PULSE 110; RESP 18; TEMP 99.3; O2SAT 96
[2017-09-24] MEDS: LIPASE/PROTEASE/AMYLASE (24,000/76,000/120,000) CAP PO SCH ×3 (08:00→17:00)
[2017-09-24] MEDS: SODIUM CHLORIDE 0.9% FLUSH 10 ML FLUSH IV FLUSH SCH ×2 (09:00→20:42)
[2017-09-24] MEDS: DOCUSATE SODIUM 50 MG/SENNA 8.6 MG TAB PO SCH ×2 (09:25→20:41)
[2017-09-24] MEDS: PANTOPRAZOLE SODIUM 40 MG VIAL IV PUSH SCH ×2 (09:25→20:41)
--- NOTE | 2017-09-24 11:41 | HHI.PR ---
Subjective Remarks Follow-up acute on chronic recurrent pancreatitis 09/24/17-patient seen and examined, still complains of nausea along with abdominal pain however denies any emesis. Objective Vitals Vital Signs Date Time Temp Pulse Resp B/P (MAP) Pulse Ox O2 Delivery O2 Flow Rate FiO2 09/24/17 09:30 19 09/24/17 07:30 99.3 110 18 114/63 (80) 96 09/24/17 03:40 99.7 111 18 103/71 (82) 97 09/23/17 23:20 100.9 120 19 117/74 (88) 96 09/23/17 22:05 98.5 118 19 128/85 (99) 97 09/23/17 16:00 100.9 114 16 134/77 (96) 95 09/23/17 12:28 99.1 213 16 137/85 (102) 99 I/O 09/23/17 09/23/17 09/23/17 09/24/17 09/24/17 09/24/17 07:00 15:00 23:00 07:00 15:00 23:00 Intake Total 2100 ml 101 ml 1530 ml 1286 ml Output Total 400 ml 775 ml Balance 2100 ml 101 ml 1130 ml 511 ml Intake Oral 480 ml 360 ml IV Total 2100 ml 101 ml 1050 ml 926 ml Output Urine Total 400 ml 775 ml # Voids 2 # Bowel Movements 0 0 0 Result Diagram: 09/23/1720809/23/17208 Imaging Last Impressions Chest X-Ray 09/23/17126 Signed Impressions: Service Date/Time: Saturday, September 23, 2017 01:50 - CONCLUSION: No acute cardiopulmonary abnormality is identified. Terrell Franklin MD Abdomen/Pelvis CT 09/23/17126 Signed Impressions: Service Date/Time: Saturday, September 23, 2017 03:41 - CONCLUSION: 1. Persistent abnormal pancreas indicating persistent or residual inflammatory changes. There is a abnormally dilated duct within the pancreas and there are new inflammatory changes extending inferior and superior from the tail of the pancreas with partially organized fluid collections. The largest measures 5.7 cm and abuts the gastric wall. 2. Stable nonacute findings include severe hepatic steatosis, cholelithiasis, and splenomegaly. Terrell Franklin MD Cholangiopancreatography MRI 09/23/17 0000 Signed Impressions: Service Date/Time: Saturday, September 23, 2017 14:25 - CONCLUSION: 1. There continues to be diffuse prominent pancreatitis with inflammatory changes involving the entire pancreas. Complex fluid collections are again seen involving the body and tail the pancreas without significant change compared to the CT scan from 09/23/2017. These are probably developing pseudocyst. 2. There is fatty infiltration of the liver. 3. No biliary tract obstruction is demonstrated. Juan A Shi MD Objective Remarks GENERAL: NAD SKIN: Warm and dry. HEAD: Normocephalic. EYES: No scleral icterus. No injection or drainage. NECK: Supple, trachea midline. No JVD or lymphadenopathy. CARDIOVASCULAR: Regular rate and rhythm without murmurs, gallops, or rubs. RESPIRATORY: Breath sounds equal bilaterally. No accessory muscle use. GASTROINTESTINAL: Abdomen soft, mildly tender, nondistended. Hypoactive BS MUSCULOSKELETAL: No cyanosis, or edema. BACK: Nontender without obvious deformity. No CVA tenderness. A/P Problem List: (1) Acute recurrent pancreatitis ICD Code: K85.90 - Acute pancreatitis without necrosis or infection, unspecified Assessment and Plan 26 Year-old man with Acute on chronic recurrent pancreatitis with possible pseudocyst Appreciate input from GI MRCP with evidence of diffuse prominent pancreatitis Continue with Creon, PPI Clear liquids and advance diet as tolerated Monitor lipase level Alcohol abuse Currently sober per patient however alcohol cessation counseling provided CIWA, Rally pack DVT prophylaxis: Mike Man MD Sep 24, 2017 11:41
[2017-09-24 12:00] VITALS: BP 131/75; PULSE 105; RESP 18; TEMP 98.8; O2SAT 96
[2017-09-24 12:33] LABS: AUTOMATED NEUTROPHIL # 8.8 TH/MM3 (1.8-7.7); BASOPHIL % 0.3 % (0.0-2.0); EOSINOPHIL # 0.1 TH/MM3 (0-0.4); EOSINOPHIL % 0.8 % (0.0-4.0); HEMATOCRIT 34.8 % (39.0-51.0); HEMOGLOBIN 11.6 GM/DL (13.0-17.0); LYMPH % 14.9 % (9.0-44.0); LYMPHOCYTE # 1.7 TH/MM3 (1.0-4.8); MEAN CELL VOLUME 88.5 FL (80.0-100.0); MEAN CORPUSCULAR HEMOGLOBIN 29.5 PG (27.0-34.0); MEAN CORPUSCULAR HGB CONC 33.4 % (32.0-36.0); MEAN PLATELET VOLUME 9.7 FL (7.0-11.0); MONO % 8.2 % (0.0-8.0); NEUT % 75.8 % (16.0-70.0); PLATELET COUNT 261 TH/MM3 (150-450); RED BLOOD COUNT 3.93 MIL/MM3 (4.50-5.90); RED CELL DISTRIBUTION WIDTH 14.9 % (11.6-17.2); WHITE BLOOD COUNT 11.6 TH/MM3 (4.0-11.0)
[2017-09-24 12:55] LABS: ALBUMIN 2.5 GM/DL (3.4-5.0); ALKALINE PHOSPHATASE 98 U/L (45-117); ALT (GPT) 23 U/L (12-78); AST (GOT) 39 U/L (15-37); BICARBONATE 22.7 MEQ/L (21.0-32.0); BLOOD UREA NITROGEN 3 MG/DL (7-18); CALCIUM 7.6 MG/DL (8.5-10.1); CHLORIDE 106 MEQ/L (98-107); CREATININE 0.68 MG/DL (0.60-1.30); GLOMERULAR FILTRATION RATE 140 ML/MIN (>89); GLUCOSE,RANDOM 100 MG/DL (74-106); SODIUM (NA) 138 MEQ/L (136-145); TOTAL BILIRUBIN ADULT 0.7 MG/DL (0.2-1.0); TOTAL PROTEIN 6.8 GM/DL (6.4-8.2)
--- NOTE | 2017-09-24 15:59 | HHI.GIFU ---
Subjective Remarks Pt resting in bed. mild improvement pain and nausea today. tolerating sips clears, did ok with popsicle. (Patty Rosales) Objective Vitals I&O Vital Signs Date Time Temp Pulse Resp B/P (MAP) Pulse Ox O2 Delivery O2 Flow Rate FiO2 09/24/17 12:37 18 09/24/17 12:00 98.8 105 18 131/75 (93) 96 09/24/17 07:30 99.3 110 18 114/63 (80) 96 09/24/17 03:40 99.7 111 18 103/71 (82) 97 09/23/17 23:20 100.9 120 19 117/74 (88) 96 09/23/17 22:05 98.5 118 19 128/85 (99) 97 09/23/17 16:00 100.9 114 16 134/77 (96) 95 I/O 09/23/17 09/23/17 09/23/17 09/24/17 09/24/17 09/24/17 07:00 15:00 23:00 07:00 15:00 23:00 Intake Total 2100 ml 101 ml 1530 ml 1286 ml Output Total 400 ml 775 ml Balance 2100 ml 101 ml 1130 ml 511 ml Intake Oral 480 ml 360 ml IV Total 2100 ml 101 ml 1050 ml 926 ml Output Urine Total 400 ml 775 ml # Voids 2 # Bowel Movements 0 0 0 Laboratory Laboratory Tests Test 09/24/17 11:55 White Blood Count 11.6 Red Blood Count 3.93 Hemoglobin 11.6 Hematocrit 34.8 Mean Corpuscular Volume 88.5 Mean Corpuscular Hemoglobin 29.5 Mean Corpuscular Hemoglobin Concent 33.4 Red Cell Distribution Width 14.9 Platelet Count 261 Mean Platelet Volume 9.7 Neutrophils (%) (Auto) 75.8 Lymphocytes (%) (Auto) 14.9 Monocytes (%) (Auto) 8.2 Eosinophils (%) (Auto) 0.8 Basophils (%) (Auto) 0.3 Neutrophils # (Auto) 8.8 Lymphocytes # (Auto) 1.7 Monocytes # (Auto) 1.0 Eosinophils # (Auto) 0.1 Basophils # (Auto) 0.0 CBC Comment DIFF FINAL Differential Comment Blood Urea Nitrogen 3 Creatinine 0.68 Random Glucose 100 Total Protein 6.8 Albumin 2.5 Calcium Level 7.6 Alkaline Phosphatase 98 Aspartate Amino Transf (AST/SGOT) 39 Alanine Aminotransferase (ALT/SGPT) 23 Total Bilirubin 0.7 Sodium Level 138 Potassium Level 4.1 Chloride Level 106 Carbon Dioxide Level 22.7 Anion Gap 9 Estimat Glomerular Filtration Rate 140 Lipase 105 Date/Time Source Procedure Growth Status 09/23/17 02:10 Blood Peripheral Aerobic Blood Culture - Preliminary NO GROWTH IN 1 DAY Resulted 09/23/17 02:10 Blood Peripheral Anaerobic Blood Culture - Preliminary NO GROWTH IN 1 DAY Resulted 09/23/17 04:11 Nasal Aspirate Influenza Types A,B Antigen (MEGHA) - Final NEGATIVE FOR FLU A AND B ANTIGEN.... Complete Imaging Last Impressions Chest X-Ray 09/23/17126 Signed Impressions: Service Date/Time: Saturday, September 23, 2017 01:50 - CONCLUSION: No acute cardiopulmonary abnormality is identified. Terrell Franklin MD Abdomen/Pelvis CT 09/23/17126 Signed Impressions: Service Date/Time: Saturday, September 23, 2017 03:41 - CONCLUSION: 1. Persistent abnormal pancreas indicating persistent or residual inflammatory changes. There is a abnormally dilated duct within the pancreas and there are new inflammatory changes extending inferior and superior from the tail of the pancreas with partially organized fluid collections. The largest measures 5.7 cm and abuts the gastric wall. 2. Stable nonacute findings include severe hepatic steatosis, cholelithiasis, and splenomegaly. Terrell Franklin MD Cholangiopancreatography MRI 09/23/17 0000 Signed Impressions: Service Date/Time: Saturday, September 23, 2017 14:25 - CONCLUSION: 1. There continues to be diffuse prominent pancreatitis with inflammatory changes involving the entire pancreas. Complex fluid collections are again seen involving the body and tail the pancreas without significant change compared to the CT scan from 09/23/2017. These are probably developing pseudocyst. 2. There is fatty infiltration of the liver. 3. No biliary tract obstruction is demonstrated. Juan A Shi MD Physical Exam HEENT: PERRL; normocephalic; atraumatic; no jaundice. CHEST: Cta CARDIAC: RRR ABDOMEN: Soft, nondistended, diffuse TTP > epigastrium ; no hepatosplenomegaly ; bowel sounds are present in all four quadrants. EXTREMITIES: No clubbing, cyanosis, or edema. SKIN: Normal; no rash; no jaundice. [employer] PROGRAMMER: No focal deficits; alert and oriented times three. (Patty Rosales) Assessment and Plan Plan ASSESSMENT/History - epigastric and RUQ pain - chronic pancreatitis, poss pseudocysts. not etoh in 1 month can drain pseudocysts if/when mature CT 09/23/17 --> persistent abnormal pancreas, dilated pancreatic duct, new inflammatory changes, partially organized fluid collections largest of which is 5.7 cm abutting gastric wall, fatty liver, cholelithiasis, splenomegaly. HIDA done 08/28/17 shows possible chronic cholecystitis EGD 08/27/17, per Dr. Hamilton. Results showed grade B esophagitis gastritis anthum, duodenitis, large amount of bile noted possible gastroparesis, hiatal hernia MRCP 08/26/17--> abnormal pancreas, dilated ducts or necrosis related to pancreatitis, Hepatomegaly, fatty liver 09/24/17 MRCP 09/23/17 --> diffuse prominent pancreatitis, developing pseudocyst. mild improvement symptoms today. tolerating small amounts clears PLAN - EUS if/when cysts mature - clear liquids - continue creon - continue PPI -supportive care pt seen by myself and Dr Francois and this note is on his behalf (Patty Rosales) Physician Comments Seen and examined, plan as above. Will follow up with you. (Meagan Francois MD) Patty Rosales Sep 24, 2017 15:59 Meagan Francois MD Sep 25, 2017 09:34
[2017-09-24 16:00] VITALS: BP 137/86; PULSE 110; RESP 18; TEMP 100; O2SAT 99
[2017-09-24 19:35] VITALS: BP 143/88; PULSE 110; RESP 18; TEMP 100.8; O2SAT 97
[2017-09-24 23:35] VITALS: BP 138/86; PULSE 101; RESP 18; TEMP 99.6; O2SAT 96
[2017-09-25] MEDS: SODIUM CHLOR 0.9% 1000 ML INJ 1,000 ML IV SCH ×2 (01:24→08:42)
[2017-09-25] MEDS: MORPHINE SULFATE 4 MG/ML INJ IV PUSH PRN ×7 (03:09→22:14)
[2017-09-25] MEDS: THIAMINE INJ 100 MG in SODIUM CHLORIDE 0.9% INJ 100 ML IV SCH (04:07)
[2017-09-25 04:20] VITALS: BP 129/80; PULSE 101; RESP 18; TEMP 99.1; O2SAT 96
[2017-09-25] MEDS: PIPERACIL-TAZO 3.375 GM PREMIX 50 ML IV SCH ×4 (05:30→23:25)
[2017-09-25] MEDS: MULTIVITAMIN INJ 10 ML, FOLIC ACID INJ 1 MG in SODIUM CHLORID 0.9% 500 ML INJ 500 ML IV SCH (06:01)
[2017-09-25 07:39] VITALS: BP 130/86; PULSE 100; RESP 18; TEMP 99.1; O2SAT 96
[2017-09-25] MEDS: LIPASE/PROTEASE/AMYLASE (24,000/76,000/120,000) CAP PO SCH ×3 (08:00→18:33)
[2017-09-25] MEDS: DOCUSATE SODIUM 50 MG/SENNA 8.6 MG TAB PO SCH ×2 (08:38→22:13)
[2017-09-25] MEDS: PANTOPRAZOLE SODIUM 40 MG VIAL IV PUSH SCH ×2 (08:42→22:13)
[2017-09-25] MEDS: SODIUM CHLORIDE 0.9% FLUSH 10 ML FLUSH IV FLUSH SCH ×2 (08:49→21:00)
--- NOTE | 2017-09-25 10:07 | HHI.PR ---
Subjective Remarks Follow-up acute on chronic recurrent pancreatitis 09/24/17-patient seen and examined, still complains of nausea along with abdominal pain however denies any emesis. 09/25/17-patient seen and examined, nausea improving as well as abdominal pain. +BM Objective Vitals Vital Signs Date Time Temp Pulse Resp B/P (MAP) Pulse Ox O2 Delivery O2 Flow Rate FiO2 09/25/17 07:39 99.1 100 18 130/86 (101) 96 09/25/17 04:20 99.1 101 18 129/80 (96) 96 09/24/17 23:35 99.6 101 18 138/86 (103) 96 09/24/17 19:35 100.8 110 18 143/88 (106) 97 09/24/17 16:11 18 09/24/17 16:00 100.0 110 18 137/86 (103) 99 09/24/17 12:00 98.8 105 18 131/75 (93) 96 I/O 09/24/17 09/24/17 09/24/17 09/25/17 09/25/17 09/25/17 07:00 15:00 23:00 07:00 15:00 23:00 Intake Total 1286 ml 960 ml 360 ml 360 ml Output Total 775 ml 2000 ml 1000 ml 825 ml Balance 511 ml -1040 ml -640 ml -465 ml Intake Oral 360 ml 960 ml 360 ml 360 ml IV Total 926 ml Output Urine Total 775 ml 2000 ml 1000 ml 825 ml # Bowel Movements 0 0 0 0 Result Diagram: 09/24/17 1155 09/24/17 1155 Imaging Last Impressions Chest X-Ray 09/23/17126 Signed Impressions: Service Date/Time: Saturday, September 23, 2017 01:50 - CONCLUSION: No acute cardiopulmonary abnormality is identified. Terrell Franklin MD Abdomen/Pelvis CT 09/23/17126 Signed Impressions: Service Date/Time: Saturday, September 23, 2017 03:41 - CONCLUSION: 1. Persistent abnormal pancreas indicating persistent or residual inflammatory changes. There is a abnormally dilated duct within the pancreas and there are new inflammatory changes extending inferior and superior from the tail of the pancreas with partially organized fluid collections. The largest measures 5.7 cm and abuts the gastric wall. 2. Stable nonacute findings include severe hepatic steatosis, cholelithiasis, and splenomegaly. Terrell Franklin MD Cholangiopancreatography MRI 09/23/17 0000 Signed Impressions: Service Date/Time: Saturday, September 23, 2017 14:25 - CONCLUSION: 1. There continues to be diffuse prominent pancreatitis with inflammatory changes involving the entire pancreas. Complex fluid collections are again seen involving the body and tail the pancreas without significant change compared to the CT scan from 09/23/2017. These are probably developing pseudocyst. 2. There is fatty infiltration of the liver. 3. No biliary tract obstruction is demonstrated. Juan A Shi MD Objective Remarks GENERAL: NAD SKIN: Warm and dry. HEAD: Normocephalic. EYES: No scleral icterus. No injection or drainage. NECK: Supple, trachea midline. No JVD or lymphadenopathy. CARDIOVASCULAR: Regular rate and rhythm without murmurs, gallops, or rubs. RESPIRATORY: Breath sounds equal bilaterally. No accessory muscle use. GASTROINTESTINAL: Abdomen soft, mildly tender, nondistended. Hypoactive BS MUSCULOSKELETAL: No cyanosis, or edema. BACK: Nontender without obvious deformity. No CVA tenderness. Procedures none A/P Problem List: (1) Acute recurrent pancreatitis ICD Code: K85.90 - Acute pancreatitis without necrosis or infection, unspecified Assessment and Plan 26 Year-old man with Acute on chronic recurrent pancreatitis with possible pseudocyst Appreciate input from GI MRCP with evidence of diffuse prominent pancreatitis repeat CT abdomen in 1-2 weeks to monitor for Pseudocyst Continue with Creon, PPI Start Full liquid diet Monitor lipase level Alcohol abuse Currently sober per patient however alcohol cessation counseling provided CIWA, Rally pack DVT prophylaxis: Mike Man MD Sep 25, 2017 10:07
[2017-09-25 11:45] VITALS: BP 103/66; PULSE 83; RESP 18; TEMP 97.6; O2SAT 99
--- NOTE | 2017-09-25 15:57 | HHI.GIFU ---
Subjective Remarks Pt states continued abdominal pain, but seems to be improving. Rates it a 12/28 but states it fluctuates. Described as dull and pressure like feeling. Reports nausea, relieved with Zofran. Last episode of emesis was yesterday morning. Able to tolerate some full liquids. (Jacey Wolff) Objective Vitals I&O Vital Signs Date Time Temp Pulse Resp B/P (MAP) Pulse Ox O2 Delivery O2 Flow Rate FiO2 09/25/17 12:39 18 09/25/17 11:45 97.6 83 18 103/66 (78) 99 09/25/17 07:39 99.1 100 18 130/86 (101) 96 09/25/17 04:20 99.1 101 18 129/80 (96) 96 09/24/17 23:35 99.6 101 18 138/86 (103) 96 09/24/17 19:35 100.8 110 18 143/88 (106) 97 09/24/17 16:00 100.0 110 18 137/86 (103) 99 I/O 09/24/17 09/24/17 09/24/17 09/25/17 09/25/17 09/25/17 07:00 15:00 23:00 07:00 15:00 23:00 Intake Total 1286 ml 960 ml 360 ml 360 ml Output Total 775 ml 2000 ml 1000 ml 825 ml Balance 511 ml -1040 ml -640 ml -465 ml Intake Oral 360 ml 960 ml 360 ml 360 ml IV Total 926 ml Output Urine Total 775 ml 2000 ml 1000 ml 825 ml # Bowel Movements 0 0 0 0 Laboratory Date/Time Source Procedure Growth Status 09/23/17 02:10 Blood Peripheral Aerobic Blood Culture - Preliminary NO GROWTH IN 2 DAYS Resulted 09/23/17 02:10 Blood Peripheral Anaerobic Blood Culture - Preliminary NO GROWTH IN 2 DAYS Resulted 09/23/17 04:11 Nasal Aspirate Influenza Types A,B Antigen (MEGHA) - Final NEGATIVE FOR FLU A AND B ANTIGEN.... Complete Imaging Last Impressions Chest X-Ray 09/23/17126 Signed Impressions: Service Date/Time: Saturday, September 23, 2017 01:50 - CONCLUSION: No acute cardiopulmonary abnormality is identified. Terrell Franklin MD Abdomen/Pelvis CT 09/23/17126 Signed Impressions: Service Date/Time: Saturday, September 23, 2017 03:41 - CONCLUSION: 1. Persistent abnormal pancreas indicating persistent or residual inflammatory changes. There is a abnormally dilated duct within the pancreas and there are new inflammatory changes extending inferior and superior from the tail of the pancreas with partially organized fluid collections. The largest measures 5.7 cm and abuts the gastric wall. 2. Stable nonacute findings include severe hepatic steatosis, cholelithiasis, and splenomegaly. Terrell Franklin MD Cholangiopancreatography MRI 09/23/17 0000 Signed Impressions: Service Date/Time: Saturday, September 23, 2017 14:25 - CONCLUSION: 1. There continues to be diffuse prominent pancreatitis with inflammatory changes involving the entire pancreas. Complex fluid collections are again seen involving the body and tail the pancreas without significant change compared to the CT scan from 09/23/2017. These are probably developing pseudocyst. 2. There is fatty infiltration of the liver. 3. No biliary tract obstruction is demonstrated. Juan A Shi MD Physical Exam HEENT: Normocephalic; atraumatic; no jaundice. CHEST: Even/unlabored CARDIAC: RRR ABDOMEN: Soft, nondistended, diffuse TTP, bowel sounds active EXTREMITIES: No clubbing, cyanosis, or edema. SKIN: Normal; no rash; no jaundice. APPRAISAL COORDINATOR: No focal deficits; alert and oriented times three. (Jacey Wolff [facility]) Assessment and Plan Plan ASSESSMENT/History - epigastric and RUQ pain - chronic pancreatitis, poss pseudocysts. not etoh in 1 month can drain pseudocysts if/when mature CT 09/23/17 --> persistent abnormal pancreas, dilated pancreatic duct, new inflammatory changes, partially organized fluid collections largest of which is 5.7 cm abutting gastric wall, fatty liver, cholelithiasis, splenomegaly. HIDA done 08/28/17 shows possible chronic cholecystitis EGD 08/27/17, per Dr. Hamilton. Results showed grade B esophagitis gastritis anthum, duodenitis, large amount of bile noted possible gastroparesis, hiatal hernia MRCP 08/26/17--> abnormal pancreas, dilated ducts or necrosis related to pancreatitis, Hepatomegaly, fatty liver 09/24/17 MRCP 09/23/17 --> diffuse prominent pancreatitis, developing pseudocyst. mild improvement symptoms today. tolerating small amounts clears (3/8) --> Pt with continued abdominal pain but states it seems to be improving, rates it a 6 out of 10. Described as dull and pressure like feeling. Nausea relieved with Zofran. Last episode of emesis was yesterday morning. Drop in H/H noted- likely dilutional. Hypocalcemia. Pt able to tolerate some full liquids today. 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 PLAN - Creon with meals - Full liquids as tolerated - Protonix - IVF - Pain control - Monitor labs - EUS when cyst more formed - Further recommendations to follow based on clinical course Pt has been seen and examined by myself and Dr. Francois and this note is written on his behalf (Jacey Wolff) Physician Comments Agree with above, will follow up with you. (Meagan Francois MD) Jacey Wolff Sep 25, 2017 15:57 eMagan Francois MD Sep 26, 2017 06:29
[2017-09-25 16:25] VITALS: BP 129/85; PULSE 98; RESP 16; TEMP 98.4; O2SAT 97
[2017-09-25 20:02] VITALS: BP 129/85; PULSE 98; RESP 14; TEMP 99.9; O2SAT 99
[2017-09-26 00:20] VITALS: BP 118/79; PULSE 100; RESP 18; TEMP 98.8; O2SAT 98
[2017-09-26] MEDS: MORPHINE SULFATE 4 MG/ML INJ IV PUSH PRN ×4 (01:27→13:04)
[2017-09-26] MEDS: SODIUM CHLOR 0.9% 1000 ML INJ 1,000 ML IV SCH ×2 (04:51→09:01)
[2017-09-26] MEDS: MULTIVITAMIN INJ 10 ML, FOLIC ACID INJ 1 MG in SODIUM CHLORID 0.9% 500 ML INJ 500 ML IV SCH (04:52)
[2017-09-26] MEDS: PIPERACIL-TAZO 3.375 GM PREMIX 50 ML IV SCH (04:52)
[2017-09-26 08:00] VITALS: BP 132/90; PULSE 93; RESP 18; TEMP 97.2; O2SAT 98
[2017-09-26] MEDS: LIPASE/PROTEASE/AMYLASE (24,000/76,000/120,000) CAP PO SCH ×2 (08:57→13:03)
[2017-09-26] MEDS: DOCUSATE SODIUM 50 MG/SENNA 8.6 MG TAB PO SCH (08:57)
[2017-09-26] MEDS: PANTOPRAZOLE SODIUM 40 MG VIAL IV PUSH SCH (08:58)
[2017-09-26] MEDS ORDERED: THIAMINE HCL 100 MG TAB PO SCH (09:00)
[2017-09-26] MEDS: SODIUM CHLORIDE 0.9% FLUSH 10 ML FLUSH IV FLUSH SCH (09:01)
--- NOTE | 2017-09-26 10:46 | HHI.PR ---
Subjective Remarks Follow-up acute on chronic recurrent pancreatitis 09/24/17-patient seen and examined, still complains of nausea along with abdominal pain however denies any emesis. 09/25/17-patient seen and examined, nausea improving as well as abdominal pain. +BM 09/26/17-patient seen and examined, reports improvement with full liquid and states he would like to try regular diet prior to discharge to [facility] Objective Vitals Vital Signs Date Time Temp Pulse Resp B/P (MAP) Pulse Ox O2 Delivery O2 Flow Rate FiO2 09/26/17 08:00 97.2 93 18 132/90 (104) 98 09/26/17 00:20 98.8 100 18 118/79 (92) 98 09/25/17 20:02 99.9 98 14 129/85 (100) 99 09/25/17 16:25 98.4 98 16 129/85 (100) 97 09/25/17 16:07 18 09/25/17 11:45 97.6 83 18 103/66 (78) 99 I/O 09/25/17 09/25/17 09/25/17 09/26/17 09/26/17 09/26/17 07:00 15:00 23:00 07:00 15:00 23:00 Intake Total 360 ml 1480 ml 360 ml 1360 ml Output Total 825 ml 1600 ml 300 ml Balance -465 ml -120 ml 360 ml 1060 ml Intake Oral 360 ml 1480 ml 360 ml 360 ml IV Total 1000 ml Output Urine Total 825 ml 1600 ml 300 ml # Voids 2 # Bowel Movements 0 0 0 0 Result Diagram: 09/24/17 1155 09/24/17 1155 Imaging Last Impressions Chest X-Ray 09/23/17126 Signed Impressions: Service Date/Time: Saturday, September 23, 2017 01:50 - CONCLUSION: No acute cardiopulmonary abnormality is identified. Terrell Franklin MD Abdomen/Pelvis CT 09/23/17126 Signed Impressions: Service Date/Time: Saturday, September 23, 2017 03:41 - CONCLUSION: 1. Persistent abnormal pancreas indicating persistent or residual inflammatory changes. There is a abnormally dilated duct within the pancreas and there are new inflammatory changes extending inferior and superior from the tail of the pancreas with partially organized fluid collections. The largest measures 5.7 cm and abuts the gastric wall. 2. Stable nonacute findings include severe hepatic steatosis, cholelithiasis, and splenomegaly. Terrell Franklin MD Cholangiopancreatography MRI 09/23/17 0000 Signed Impressions: Service Date/Time: Saturday, September 23, 2017 14:25 - CONCLUSION: 1. There continues to be diffuse prominent pancreatitis with inflammatory changes involving the entire pancreas. Complex fluid collections are again seen involving the body and tail the pancreas without significant change compared to the CT scan from 09/23/2017. These are probably developing pseudocyst. 2. There is fatty infiltration of the liver. 3. No biliary tract obstruction is demonstrated. Juan A Shi MD Objective Remarks GENERAL: NAD SKIN: Warm and dry. HEAD: Normocephalic. EYES: No scleral icterus. No injection or drainage. NECK: Supple, trachea midline. No JVD or lymphadenopathy. CARDIOVASCULAR: Regular rate and rhythm without murmurs, gallops, or rubs. RESPIRATORY: Breath sounds equal bilaterally. No accessory muscle use. GASTROINTESTINAL: Abdomen soft, mildly tender, nondistended. Hypoactive BS MUSCULOSKELETAL: No cyanosis, or edema. BACK: Nontender without obvious deformity. No CVA tenderness. Procedures none A/P Problem List: (1) Acute recurrent pancreatitis ICD Code: K85.90 - Acute pancreatitis without necrosis or infection, unspecified Assessment and Plan 26 Year-old man with Acute on chronic recurrent pancreatitis with possible pseudocyst-improving Appreciate input from GI MRCP with evidence of diffuse prominent pancreatitis repeat CT abdomen in 1-2 weeks to monitor for Pseudocyst Continue with Creon, PPI Start Healthy diet Monitor lipase level Alcohol abuse Currently sober per patient however alcohol cessation counseling provided Derrick ACHARYA Will discharge patient to follow-up with [facility] DVT prophylaxis: B-Mike Zuniga MD Sep 26, 2017 10:45
[2017-09-26] MEDS ORDERED: CREON24 PO (10:50)
--- NOTE | 2017-09-26 10:54 | HHI.DS ---
Discharge Summary Admission Date Sep 23, 2017 at 04:14 Discharge Date: Sep 26, 2017 Admitting Diagnosis Acute Pancreatitis with pancreatic fluid collection (1) Acute recurrent pancreatitis ICD Code: K85.90 - Acute pancreatitis without necrosis or infection, unspecified Procedures none Brief History - From Admission 26-year-old male with a history of pancreatitis, alcohol abuse presented to the ED for evaluation of worsening abdominal pain rated 7/10 in intensity described as constant and stabbing with radiation to his back associated with intractable nausea and vomiting worse over the past 3 days over ongoing over the past 10 days. She'll report a 30 pound weight loss secondary to decreased appetite, but denies any diarrhea or GI bleed. He recently had EGD on 08/27/17. Patient reported being sober over the past 35 days. Complain of occasional shortness of breath however denies any chest pain. CBC/BMP: 09/24/17 1155 09/24/17 1155 Significant Findings Laboratory Tests Test 09/24/17 11:55 White Blood Count 11.6 TH/MM3 (4.0-11.0) Red Blood Count 3.93 MIL/MM3 (4.50-5.90) Hemoglobin 11.6 GM/DL (13.0-17.0) Hematocrit 34.8 % (39.0-51.0) Neutrophils (%) (Auto) 75.8 % (16.0-70.0) Monocytes (%) (Auto) 8.2 % (0.0-8.0) Neutrophils # (Auto) 8.8 TH/MM3 (1.8-7.7) Monocytes # (Auto) 1.0 TH/MM3 (0-0.9) Blood Urea Nitrogen 3 MG/DL (7-18) Albumin 2.5 GM/DL (3.4-5.0) Calcium Level 7.6 MG/DL (8.5-10.1) Aspartate Amino Transf (AST/SGOT) 39 U/L (15-37) Imaging Last Impressions Chest X-Ray 09/23/17 0127 Signed Impressions: Service Date/Time: Saturday, September 23, 2017 01:50 - CONCLUSION: No acute cardiopulmonary abnormality is identified. Terrell Franklin MD Abdomen/Pelvis CT 09/23/17 0127 Signed Impressions: Service Date/Time: Saturday, September 23, 2017 03:41 - CONCLUSION: 1. Persistent abnormal pancreas indicating persistent or residual inflammatory changes. There is a abnormally dilated duct within the pancreas and there are new inflammatory changes extending inferior and superior from the tail of the pancreas with partially organized fluid collections. The largest measures 5.7 cm and abuts the gastric wall. 2. Stable nonacute findings include severe hepatic steatosis, cholelithiasis, and splenomegaly. Terrell Franklin MD Cholangiopancreatography MRI 09/23/17 0000 Signed Impressions: Service Date/Time: Saturday, September 23, 2017 14:25 - CONCLUSION: 1. There continues to be diffuse prominent pancreatitis with inflammatory changes involving the entire pancreas. Complex fluid collections are again seen involving the body and tail the pancreas without significant change compared to the CT scan from 09/23/2017. These are probably developing pseudocyst. 2. There is fatty infiltration of the liver. 3. No biliary tract obstruction is demonstrated. Juan A Shi MD PE at Discharge GENERAL: NAD SKIN: Warm and dry. HEAD: Normocephalic. EYES: No scleral icterus. No injection or drainage. NECK: Supple, trachea midline. No JVD or lymphadenopathy. CARDIOVASCULAR: Regular rate and rhythm without murmurs, gallops, or rubs. RESPIRATORY: Breath sounds equal bilaterally. No accessory muscle use. GASTROINTESTINAL: Abdomen soft, mildly tender, nondistended. Hypoactive BS MUSCULOSKELETAL: No cyanosis, or edema. BACK: Nontender without obvious deformity. No CVA tenderness. Hospital Course While in the hospital, the patient was treated for : Acute on chronic recurrent pancreatitis with possible pseudocyst-improved prior to discharge Gastroenterology was consulted MRCP with evidence of diffuse prominent pancreatitis repeat CT abdomen in 1-2 weeks to monitor for Pseudocyst Treated with Creon, PPI Diet was advanced accordingly Alcohol abuse Currently sober per patient however alcohol cessation counseling provided Treated with CIWA, Rally pack DVT prophylaxis: B-SCDs Pt Condition on Discharge: Good Discharge Disposition: Discharge Home Discharge Time: <= 30 minutes Discharge Instructions DIET: Follow Instructions for: Heart Healthy Diet Activities you can perform: Regular-No Restrictions Follow up Referrals: PCP Follow-up - 1 Week New Medications: Pancrelipase (Creon) 24,000-76,000-120,000 Units Cap 1 CAP PO TIDAC for Bowel Management, #90 CAP 11 Refills Continued Medications: Multiple Vitamin (Multiple Vitamin) 1 Tab 1 TAB PO DAILY for Nutritional Supplement, #30 TAB 0 Refills Pantoprazole (Pantoprazole) 40 Mg Tab 40 MG PO Q12HR for Electrolyte Replacement, #60 TAB Thiamine HCl (Gnp Vitamin B-1) 100 Mg Tab 100 MG PO DAILY for Alcohol Detox, #30 TAB Discontinued Medications: Chlordiazepoxide HCl (Chlordiazepoxide HCl) 5 Mg Capsule 5 MG PO BID for Alcohol Detox, #4 CAP Oxycodone (Oxycodone) 10 Mg Tab 10 MG PO Q8HR PRN for PAIN SCALE 6 TO 10, #6 TAB Pancrelipase (Creon) 24,000-76,000-120,000 Units Cap 1 CAP PO TIDAC for pancreatitis, #90 CAP Mike Richard MD Sep 26, 2017 10:53
[2017-09-26 12:00] VITALS: BP 121/81; PULSE 84; RESP 18; TEMP 97.2; O2SAT 97
--- NOTE | 2017-09-26 13:35 | HHI.GIFU ---
Subjective Remarks Pt sitting up in bed Tolerating full liquids Diet just changed to general healthful, he has ordered lunch but hasn't received it yet Continued abdominal pain but states has improved since admission Has not needed nausea medication since yesterday afternoon Denies emesis (+) BM yesterday (Jacey Wolff) Objective Vitals I&O Vital Signs Date Time Temp Pulse Resp B/P (MAP) Pulse Ox O2 Delivery O2 Flow Rate FiO2 09/26/17 12:00 97.2 84 18 121/81 (94) 97 09/26/17 08:00 97.2 93 18 132/90 (104) 98 09/26/17 00:20 98.8 100 18 118/79 (92) 98 09/25/17 20:02 99.9 98 14 129/85 (100) 99 09/25/17 16:25 98.4 98 16 129/85 (100) 97 09/25/17 16:07 18 I/O 09/25/17 09/25/17 09/25/17 09/26/17 09/26/17 09/26/17 07:00 15:00 23:00 07:00 15:00 23:00 Intake Total 360 ml 1480 ml 360 ml 1360 ml Output Total 825 ml 1600 ml 300 ml Balance -465 ml -120 ml 360 ml 1060 ml Intake Oral 360 ml 1480 ml 360 ml 360 ml IV Total 1000 ml Output Urine Total 825 ml 1600 ml 300 ml # Voids 2 # Bowel Movements 0 0 0 0 Laboratory Date/Time Source Procedure Growth Status 09/23/17 02:10 Blood Peripheral Aerobic Blood Culture - Preliminary NO GROWTH IN 3 DAYS Resulted 09/23/17 02:10 Blood Peripheral Anaerobic Blood Culture - Preliminary NO GROWTH IN 3 DAYS Resulted 09/23/17 04:11 Nasal Aspirate Influenza Types A,B Antigen (MEGHA) - Final NEGATIVE FOR FLU A AND B ANTIGEN.... Complete Imaging Last Impressions Chest X-Ray 09/23/17126 Signed Impressions: Service Date/Time: Saturday, September 23, 2017 01:50 - CONCLUSION: No acute cardiopulmonary abnormality is identified. Terrell Franklin MD Abdomen/Pelvis CT 09/23/17126 Signed Impressions: Service Date/Time: Saturday, September 23, 2017 03:41 - CONCLUSION: 1. Persistent abnormal pancreas indicating persistent or residual inflammatory changes. There is a abnormally dilated duct within the pancreas and there are new inflammatory changes extending inferior and superior from the tail of the pancreas with partially organized fluid collections. The largest measures 5.7 cm and abuts the gastric wall. 2. Stable nonacute findings include severe hepatic steatosis, cholelithiasis, and splenomegaly. Terrell Franklin MD Cholangiopancreatography MRI 09/23/17 0000 Signed Impressions: Service Date/Time: Saturday, September 23, 2017 14:25 - CONCLUSION: 1. There continues to be diffuse prominent pancreatitis with inflammatory changes involving the entire pancreas. Complex fluid collections are again seen involving the body and tail the pancreas without significant change compared to the CT scan from 09/23/2017. These are probably developing pseudocyst. 2. There is fatty infiltration of the liver. 3. No biliary tract obstruction is demonstrated. Juan A Shi MD Physical Exam HEENT: Normocephalic; atraumatic CHEST: Even/unlabored CARDIAC: RRR ABDOMEN: Soft, nondistended, diffuse TTP, bowel sounds active EXTREMITIES: No clubbing, cyanosis, or edema. SKIN: Normal; no rash; no jaundice. G[employer]AGE [employer]ER: No focal deficits; alert and oriented times three. ([facility]) Assessment and Plan Plan ASSESSMENT/History - epigastric and RUQ pain - chronic pancreatitis, poss pseudocysts. not etoh in 1 month can drain pseudocysts if/when mature CT 09/23/17 --> persistent abnormal pancreas, dilated pancreatic duct, new inflammatory changes, partially organized fluid collections largest of which is 5.7 cm abutting gastric wall, fatty liver, cholelithiasis, splenomegaly. HIDA done 08/28/17 shows possible chronic cholecystitis EGD 08/27/17, per Dr. Hamilton. Results showed grade B esophagitis gastritis anthum, duodenitis, large amount of bile noted possible gastroparesis, hiatal hernia MRCP 08/26/17--> abnormal pancreas, dilated ducts or necrosis related to pancreatitis, Hepatomegaly, fatty liver 09/24/17 MRCP 09/23/17 --> diffuse prominent pancreatitis, developing pseudocyst. mild improvement symptoms today. tolerating small amounts clears (09/25) --> Pt with continued abdominal pain but states it seems to be improving, rates it a 6 out of 10. Described as dull and pressure like feeling. Nausea relieved with Zofran. Last episode of emesis was yesterday morning. Drop in H/H noted- likely dilutional. Hypocalcemia. Pt able to tolerate some full liquids today. 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 (09/26) --> Diet has been advanced to general healthful. Pt just ordered lunch but it has not been delivered yet. Tolerating full liquids. Has not needed nausea medication since yesterday afternoon. Denies emesis. (+) BM yesterday. Continued abdominal pain but states improved since admission. Lipase still WNL. Remains on Creon. Planned for DC today. PLAN - Creon with meals - YANIRA - Protonix - Pain control - Monitor labs - EUS outpatient - OK to DC from a GI standpoint if tolerating regular food - Have pt follow up with GI in office in one week Pt has been seen and examined by myself and Dr. Francois and this note is written on his behalf (Jacey Wolff) Physician Comments Agree with above assessment and plan. Please notify us if needed again. (Meagan Francois MD) Jacey Wolff Sep 26, 2017 13:35 Meagan Francois MD Sep 26, 2017 15:20
[2017-09-26 16:00] VITALS: BP 129/90; PULSE 100; RESP 18; TEMP 96; O2SAT 96
[2017-09-26] MEDS: ONDANSETRON HCL 4 MG/2 ML VIAL IVP PRN (16:24)
[2017-09-28] MEDS ORDERED: THIAMINE HCL 100 MG TAB PO SCH (09:00)
== END 2017-09-26 17:06 | disposition home or self-care (01) | DRG 439 ==
LOC: NEPE 19:44 → NEDA 09-23 04:14 → N06B 09-23 17:52
PROVIDERS: ADMIT Hospitalist; ATTEND Hospitalist
DX: K85.90 Acute pancreatitis without necrosis or infection, unspecified (principal); K86.3 Pseudocyst of pancreas; K74.60 Unspecified cirrhosis of liver; E83.51 Hypocalcemia; R16.1 Splenomegaly, not elsewhere classified; I10 Essential (primary) hypertension; K86.1 Other chronic pancreatitis; F10.10 Alcohol abuse, uncomplicated; R00.0 Tachycardia, unspecified; R63.4 Abnormal weight loss; R63.0 Anorexia; K80.20 Calculus of gallbladder without cholecystitis without obstruction; K76.0 Fatty (change of) liver, not elsewhere classified; Y90.0 Blood alcohol level of less than 20 mg/100 ml
CPT/HCPCS: 71045; 74177; 74181; 76377; 80053; 80307; 81001; 82550; 83605; 83690; 84484; 85025; 85610; 85730; 87040; 87804; 93005; 96361; 96374; 96375; 99285; C9113; J2270; J2405; J2543; J3411; J7030; J7040; Q9967